=== PATIENT | male | born 1940 | race Caucasian/White ===

== ENCOUNTER 2017-08-29 09:05 | Observation (INO) ==
[2017-08-29] MEDS ORDERED: methylPREDNISolone 125 MG/2 ML VIAL IVP ONE (09:24)
[2017-08-29] MEDS ORDERED: 0.9 % Sodium Chloride 1,000 ML IVC ONE (09:24)
[2017-08-29] MEDS ORDERED: Ipratropium/Albuterol Neb 3 ML IH ONE (09:24)
[2017-08-29] MEDS ORDERED: Ibuprofen 600 MG TABLET PO ONE (09:30)
--- NOTE | 2017-08-29 09:45 | Emergency Department Note ---
Disposition Clinical Impression: Bronchitis, COPD exacerbation Sepsis Qualifiers: Sepsis type: sepsis due to unspecified organism Qualified Code(s): A41.9 - Sepsis, unspecified organism Disposition: Admitted As Inpatient Condition: Fair Referrals: Moi,Christiano Castillo MD [Primary Care Provider] - Forms: ED Satisfaction Letter Time of Disposition: 12:26 SOB HPI - General Chief Complaint: ED Shortness of Breath/Dyspnea Stated Complaint: Weakness,KATINA Time Seen by Provider: 08/29/17 09:12 Source: patient, other Mode of arrival: ambulatory Limitations: no limitations Nursing Notes Reviewed: Yes Vital Signs Reviewed: Yes - History of Present Illness 76-year-old male presents to the emergency department complaining of shortness of breath weakness. This is been occurring for 2-3 days worsening. Says he does have productive cough there is no blood. Patient states he knows that that is wrong when he can only do one to 2 cigarettes a day rather than his normal one to 2 packs a day. He says he has no cardiac issues he has no lung issues said he has had a fever but has not been taking anything for it. He has not been nauseous or vomiting since having mild upper abdominal pain but all from the cough and worsens whenever he does cough. He also has left-sided chest pain that is worse when he coughs otherwise she does not have it. Said these pains are about 5 out of 10 dull aches and only occur when he coughs. Patient otherwise has no complaints including headaches, blurry vision, neck pain, back pain, nausea, vomiting, fevers, chills, chest pain, abdominal pain, changes in bowel movements, pain with urination, pain or tingling of the arms or legs. - Related Data Home Medications Medication Instructions Recorded Confirmed Aspirin 81 mg PO DAILY 05/22/16 05/27/16 LORazepam [Ativan] 0.5 mg PO TID 05/22/16 05/27/16 Lisinopril [Zestril] 20 mg PO BID 05/22/16 05/27/16 Simvastatin [Zocor] 20 mg PO HS 05/22/16 05/27/16 Amlodipine Besylate [Amlodipine 2.5 mg PO DAILY 08/29/17 08/29/17 Besylate] Allergies Allergy/AdvReac Type Severity Reaction Status Date / Time No Known Allergies Allergy Verified 08/29/17 11:16 Review of Systems: 10 point review of systems done and negative unless otherwise stated in the history of present illness. All systems ED: reviewed and negative except as stated. Review of Systems: As Per HPI Past Medical History - Past Medical History Attestation: Yes The following information was validated with the patient. Source: patient Medical history: Reports: cancer, COPD, CVA, hypertension, other Surgical history: Reports: other (Robot bilateral inguinal hernia repair,) Psychiatric history: Reports: no psych history - Social History Smoking Status: Current every day smoker Smokeless Tobacco Status: No Alcohol use: Reports: heavy Drug use: Reports: none Physical Exam - General Limitations: no limitations General appearance: alert - Head Head exam: atraumatic, normocephalic, normal inspection - Eye Eye exam: Present: normal appearance, PERRL, EOMI - ENT ENT exam: normal exam, normal oropharynx, mucous membranes moist - Neck Neck exam: Present: normal inspection, full ROM, trachea midline - Respiratory Respiratory exam: Present: wheezes (And mild crackles in the right base.), accessory muscle use. Absent: respiratory distress, prolonged expiratory phase - Cardiovascular Cardiovascular exam: Present: regular rate, normal rhythm, normal heart sounds - Abdominal Exam Abdominal exam: Present: soft, Non-Tender, normal bowel sounds. Absent: tenderness, distention, guarding, rebound, rigidity - Extremities Exam Extremities exam: Present: normal inspection, full ROM. Absent: tenderness, pedal edema - Expanded Lower Extremity Exam Neurovascular/Tendon exam: Present: normal capillary refill. Absent: pulse deficit, motor deficit, sensory deficit, tendon deficit - Back Exam Back exam: Present: normal inspection, full ROM. Absent: tenderness, CVA tenderness (R), CVA tenderness (L) - Neurological Exam Neurological exam: Present: alert, oriented X3 - Skin Skin exam: Present: warm, dry, intact, normal color Course Course Narrative: 76-year-old male presents to the emergency department with weakness and fever as well as difficulty in breathing. We will give him triple DuoNeb treatment as well as steroids. We will get checked x-ray as well as EKG. Patient does not Sirs criteria so we will get blood cultures as well as CBC, CMP, troponin, lactate. We will give patient Motrin for his fever. We will also urinalysis. Patient was tachycardic here so we will do CT angiogram of the chest to rule out pontine embolism or possible small foci pneumonia. Disposition pending results Vital Signs Temperature 100.7 F H 08/29/17 09:06 Pulse Rate 127 08/29/17 09:06 Respiratory Rate 28 08/29/17 09:06 Blood Pressure 153/78 08/29/17 09:06 O2 Sat by Pulse Oximetry 91 08/29/17 09:06 Temperature 100.7 F H 08/29/17 09:06 Pulse Rate 101 08/29/17 11:28 Respiratory Rate 28 08/29/17 11:28 Blood Pressure 88/52 08/29/17 11:28 O2 Sat by Pulse Oximetry 98 08/29/17 11:28 Oxygen Delivery Oxygen Delivery Nasal Cannula Shortness of Breath/Dyspnea - MDM Narrative Medical decision making narrative: 76-year-old male presents to the emergency department complaining of difficulty in breathing or generalized weakness. Patient's labs showed hyponatremia which is chronic for him he had mildly elevated creatinine but was within still normal limits. Patient did have fever did treat him with Motrin. We also gave DuoNeb's and steroids. Patient does have COPD. Patient had CT angiogram done of his chest rule out pulmonary embolus and there is no PE there was possible bronchitis the right middle lobe due to patient's history of COPD hypoxia at 92 % as well as the bronchitis we felt patient needed to be admitted for IV and about. We did start Levaquin. I spoke with the hospitalist Dr. Canales who agreed to admit the patient to their service. Patient is admitted in stable condition. Patient did meet SIRS criteria when she fell bronchitis he was currently septic that time. We did not want to fluid overload him as patient says he does have history of CHF. So we just gave him 1 L bolus of IV fluids. I also treated his temperature. Patient was not hypotensive while he was here 3 did not meet criteria for septic shock. Chest X-Ray 08/29/17 09:24 IMPRESSION: 1. Findings suggestive of COPD. 2. Blunting of the bilateral costophrenic angles may represent scarring versus small pleural effusions. D/ / 08/29/2017 10:39:55 Tk Charles MD / katalina Interpreting Provider: Tk Charles MD Chest CTA 08/29/17 09:50 IMPRESSION: No evidence of pulmonary embolism or acute pulmonary abnormality. Mild right middle lobe bronchiolitis. Right upper lobe semi-solid 1.1 cm nodule. Severe atherosclerosis with bilateral subclavian stenosis and irregular plaque throughout the aorta. RECOMMENDATIONS: Follow-up chest CT in 3 months to evaluate the lung nodule. D/ / 08/29/2017 11:50:45 Long Mitchell MD / Michelle Salomon Interpreting Provider: Long Mitchell MD - Medical Records Medical records reviewed: Yes I reviewed the patient's medical records. - Lab Data Lab results reviewed: Yes I reviewed the patient's lab results. Result diagrams: 08/29/17 09:37 08/29/17 09:37 Lab Results 08/29/17 08/29/17 08/29/17 Range/Units 09:35 09:37 09:37 WBC 6.3 (4.3-11.1) K/mcL RBC 4.29 (4.19-5.50) M/mcL Hgb 14.3 (12.9-16.9) g/dL Hct 41.9 (37.5-50.1) % MCV 97.7 (83.0-100.0) fL MCH 33.3 (28.0-33.3) pg MCHC 34.1 (31.6-35.5) g/dL RDW 13.7 (11.5-14.5) % Plt Count 131 L (140-400) K/mcL MPV 10.1 (9.4-12.4) fL Immature Gran % 0.5 (0-4) % Seg Neutrophils % 83.3 % Lymphocytes % 7.3 % Monocytes % 8.4 % Eosinophils % 0.0 % Basophils % 0.5 % Neutrophils # 5.3 (1.6-8.9) K/mcL Lymphocytes # 0.5 L (0.6-4.6) K/mcL Monocytes # 0.5 (0.0-1.3) K/mcL Eosinophils # 0.0 (0.0-0.6) K/mcL Basophils # 0.0 (0.0-0.2) K/mcL PT 11.6 (9.4-12.1) Seconds INR 1.1 D-Dimer 2070 H (0-500) ng/mLFEU Sodium (136-145) mEq/L Potassium (3.5-5.1) mEq/L Chloride (98-107) mEq/L Carbon Dioxide (23-29) mEq/L BUN (8-23) mg/dL Creatinine (0.70-1.30) mg/dL Est GFR ( Amer) (> 60) Est GFR (Non-Af Amer) (> 60) BUN/Creatinine Ratio (6-26) Glucose (70-105) mg/dL Calculated Osmolality (280-300) Lactic Acid (0.5-2.2) mmol/L Calcium (8.6-10.3) mg/dL Total Bilirubin (0.3-1.0) mg/dL Direct Bilirubin (0.0-0.2) mg/dL Indirect Bilirubin (0.0-1.2) mg/dL AST (13-39) Units/L ALT (7-52) Units/L Alkaline Phosphatase (34-104) Units/L Troponin I (< 0.04) ng/mL B-Natriuretic Peptide (Less than 100) pg/mL Serum Total Protein (6.4-8.9) g/dL Albumin (3.5-5.7) g/dL Globulin (2.4-3.5) g/dL Albumin/Globulin Ratio (1.1-2.2) Urine Color Yellow (Yellow) Urine Clarity Cloudy A (Clear) Urine pH 5.5 (5.0-8.0) pH Units Ur Specific [place] 1.028 H (1.010-1.025) Urine Protein 100 H (Neg-Trace) mg/dL Urine Glucose (UA) Normal (Normal) mg/dL Urine Ketones Negative (Negative) mg/dL Urine Blood Moderate H (Negative) Urine Nitrite Negative (Negative) Urine Bilirubin Negative (Negative) Urine Urobilinogen Normal (Normal) mg/dL Ur Leukocyte Esterase Negative (Negative) Urine Microscopic RBC 3-5 H (0-3) per hpf Urine Microscopic WBC 3-5 H (0-3) per hpf Ur Squamous Epith Cells Few (None-Few) per lpf Urine Bacteria Many H (None-Few) per hpf Hyaline Casts None Seen (None-Few) per lpf Granular Casts Few H (None Seen) per lpf Ur Culture Indicated? NO (NO) 0308/29/17 08/29/17 Range/Units 09:37 09:37 09:37 WBC (4.3-11.1) K/mcL RBC (4.19-5.50) M/mcL Hgb (12.9-16.9) g/dL Hct (37.5-50.1) % MCV (83.0-100.0) fL MCH (28.0-33.3) pg MCHC (31.6-35.5) g/dL RDW (11.5-14.5) % Plt Count (140-400) K/mcL MPV (9.4-12.4) fL Immature Gran % (0-4) % Seg Neutrophils % % Lymphocytes % % Monocytes % % Eosinophils % % Basophils % % Neutrophils # (1.6-8.9) K/mcL Lymphocytes # (0.6-4.6) K/mcL Monocytes # (0.0-1.3) K/mcL Eosinophils # (0.0-0.6) K/mcL Basophils # (0.0-0.2) K/mcL PT (9.4-12.1) Seconds INR D-Dimer (0-500) ng/mLFEU Sodium 129 L (136-145) mEq/L Potassium 4.4 (3.5-5.1) mEq/L Chloride 93 L (98-107) mEq/L Carbon Dioxide 26 (23-29) mEq/L BUN 24 H (8-23) mg/dL Creatinine 1.34 H (0.70-1.30) mg/dL Est GFR ( Amer) > 60 (> 60) Est GFR (Non-Af Amer) 52 L (> 60) BUN/Creatinine Ratio 18 (6-26) Glucose 126 H (70-105) mg/dL Calculated Osmolality 274 L (280-300) Lactic Acid 2.0 (0.5-2.2) mmol/L Calcium 9.4 (8.6-10.3) mg/dL Total Bilirubin 1.1 H (0.3-1.0) mg/dL Direct Bilirubin 0.3 H (0.0-0.2) mg/dL Indirect Bilirubin 0.8 (0.0-1.2) mg/dL AST 30 (13-39) Units/L ALT 22 (7-52) Units/L Alkaline Phosphatase 98 (34-104) Units/L Troponin I 0.03 (< 0.04) ng/mL B-Natriuretic Peptide 60 (Less than 100) pg/mL Serum Total Protein 8.0 (6.4-8.9) g/dL Albumin 4.6 (3.5-5.7) g/dL Globulin 3.4 (2.4-3.5) g/dL Albumin/Globulin Ratio 1.4 (1.1-2.2) Urine Color (Yellow) Urine Clarity (Clear) Urine pH (5.0-8.0) pH Units Ur Specific [place] (1.010-1.025) Urine Protein (Neg-Trace) mg/dL Urine Glucose (UA) (Normal) mg/dL Urine Ketones (Negative) mg/dL Urine Blood (Negative) Urine Nitrite (Negative) Urine Bilirubin (Negative) Urine Urobilinogen (Normal) mg/dL Ur Leukocyte Esterase (Negative) Urine Microscopic RBC (0-3) per hpf Urine Microscopic WBC (0-3) per hpf Ur Squamous Epith Cells (None-Few) per lpf Urine Bacteria (None-Few) per hpf Hyaline Casts (None-Few) per lpf Granular Casts (None Seen) per lpf Ur Culture Indicated? (NO) - Radiology Data Radiology results reviewed: Yes I reviewed the patient's radiology results. - EKG Data EKG attestation: Yes I reviewed and interpreted this EKG. EKG results narrative: EKG done at 0925 reviewed on myself and attending shows sinus tachycardia at a rate of 122, NH interval 124, QRS 81, QTC 367 with a normal axis. There is no acute ST changes no acute T-wave changes no signs of ischemia. No signs of hypertrophy, heart strain, heart block. No WPW/Brugada syndrome. No old EKG to compare with Sepsis Reassessment Note - Evaluation Sepsis Screen: Severe Sepsis Risk Current Stage of Sepsis: sepsis Possible Source of Sepsis: pulmonary - Focused Exam Date of Encounter: 08/29/17 Time of Encounter: 12:29 Vital Signs: Vital Signs Temp Pulse Resp BP Pulse Ox 08/29/17 12:11 93 26 77/49 97 08/29/17 11:28 101 28 88/52 98 08/29/17 10:14 20 100 08/29/17 10:06 107 34 123/73 99 08/29/17 09:41 127 34 132/97 96 08/29/17 09:06 100.7 F H 127 28 153/78 91 Respiratory Exam: Present: wheezes Cardiovascular Exam: Present: RRR Capillary Refill: < 2 seconds Peripheral Pulse Strength: 3+ normal Peripheral Pulse Location: Radial Skin Exam: normal turgor
[2017-08-29 09:59] LABS: Basophils % 0.5 %; Hematocrit 41.9 % (37.5-50.1); Hemoglobin 14.3 g/dL (12.9-16.9); Immature Granulocytes % 0.5 % (0-4); Lymphocytes # 0.5 K/mcL (0.6-4.6); Lymphocytes % 7.3 %; Mean Corpuscular HGB Conc 34.1 g/dL (31.6-35.5); Mean Corpuscular Hemoglobin 33.3 pg (28.0-33.3); Mean Corpuscular Volume 97.7 fL (83.0-100.0); Mean Platelet Volume 10.1 fL (9.4-12.4); Monocytes # 0.5 K/mcL (0.0-1.3); Monocytes % 8.4 %; Neutrophils # 5.3 K/mcL (1.6-8.9); Platelet Count 131 K/mcL (140-400); Red Blood Count 4.29 M/mcL (4.19-5.50); Red Cell Distribution Width 13.7 % (11.5-14.5); Segmented Neutrophils % 83.3 %
[2017-08-29 10:06] LABS: Bilirubin,Urine Negative (Negative); Blood,Urine Moderate (Negative); Clarity,Urine Cloudy (Clear); Color,Urine Yellow (Yellow); Glucose,Urine (UA) Normal (Normal); Ketones,Urine Negative (Negative); Leukocyte Esterase,Urine Negative (Negative); Nitrite,Urine Negative (Negative); PH,Urine 5.5 pH Units (5.0-8.0); Protein,Urine 100 mg/dL (Neg-Trace); Specific Gravity,Urine 1.028 (1.010-1.025); Urobilinogen,Urine Normal (Normal)
[2017-08-29 10:09] LABS: Hyaline Casts,Urine None Seen per lpf (None-Few)
[2017-08-29 10:13] LABS: INR 1.1; Prothrombin Time 11.6 Seconds (9.4-12.1)
[2017-08-29 10:16] LABS: Alanine Aminotransferase 22 Units/L (7-52); Albumin 4.6 g/dL (3.5-5.7); Albumin/Globulin Ratio 1.4 (1.1-2.2); Alkaline Phosphatase 98 Units/L (34-104); Aspartate Amino Transferase 30 Units/L (13-39); BUN/Creatinine Ratio 18 (6-26); Bilirubin,Direct 0.3 mg/dL (0.0-0.2); Bilirubin,Indirect 0.8 mg/dL (0.0-1.2); Bilirubin,Total 1.1 mg/dL (0.3-1.0); Blood Urea Nitrogen 24 mg/dL (8-23); Calcium 9.4 mg/dL (8.6-10.3); Carbon Dioxide 26 mEq/L (23-29); Chloride 93 mEq/L (98-107); Globulin 3.4 g/dL (2.4-3.5); Glucose 126 mg/dL (70-105); Osmolality,Calculated 274 (280-300); Potassium 4.4 mEq/L (3.5-5.1); Sodium 129 mEq/L (136-145); Troponin I 0.03 ng/mL (< 0.04); eGFR For African Americans > 60 (> 60); eGFR For Non-African Americans 52 (> 60)
[2017-08-29 10:30] LABS: Granular Casts,Urine Few per lpf (None Seen); Squamous Epithelial Cell,Urine Few per lpf (None-Few)
[2017-08-29 10:31] LABS: Bacteria,Urine Many per hpf (None-Few)
--- NOTE | 2017-08-29 10:35 | Emergency Department Note ---
Disposition Clinical Impression: Sepsis Qualifiers: Sepsis type: sepsis due to unspecified organism Qualified Code(s): A41.9 - Sepsis, unspecified organism Disposition: Admitted As Inpatient Referrals: Christiano Prater MD [Primary Care Provider] - Forms: ED Satisfaction Letter Time of Disposition: 10:36 General Adult HPI - General Chief complaint: ED Shortness of Breath/Dyspnea Stated complaint: Weakness,KATINA Time Seen by Provider: 08/29/17 09:12 Source: patient, other Mode of arrival: ambulatory Limitations: no limitations - History of Present Illness Pain Scale: 8 - Related Data Home Medications Medication Instructions Recorded Confirmed Aspirin 81 mg PO DAILY 05/22/16 05/27/16 LORazepam [Ativan] 0.5 mg PO TID 05/22/16 05/27/16 Lisinopril [Zestril] 20 mg PO BID 05/22/16 05/27/16 Simvastatin [Zocor] 20 mg PO HS 05/22/16 05/27/16 Previous Rx's Medication Instructions Recorded OxyCODONE/APAP 10/325 [Percocet 1 each PO Q6HR PRN #39 tablet 05/22/16 10/325 MG] Ondansetron HCl [Zofran] 4 mg PO 2-3XD PRN #14 tablet 05/24/16 Allergies Allergy/AdvReac Type Severity Reaction Status Date / Time No Known Allergies Allergy Verified 08/29/17 09:06 Past Medical History - Past Medical History Medical history: Reports: cancer, COPD, CVA, hypertension, other Surgical history: Reports: other (Robot bilateral inguinal hernia repair,) Psychiatric history: Reports: no psych history - Social History Smoking Status: Current every day smoker Smokeless Tobacco Status: No Alcohol use: Reports: heavy Drug use: Reports: none Physical Exam - General Limitations: no limitations General appearance: alert Course Vital Signs Temperature 100.7 F H 08/29/17 09:06 Pulse Rate 127 08/29/17 09:06 Respiratory Rate 28 08/29/17 09:06 Blood Pressure 153/78 08/29/17 09:06 O2 Sat by Pulse Oximetry 91 08/29/17 09:06 Temperature 100.7 F H 08/29/17 09:06 Pulse Rate 107 08/29/17 10:06 Respiratory Rate 20 08/29/17 10:14 Blood Pressure 123/73 08/29/17 10:06 O2 Sat by Pulse Oximetry 100 08/29/17 10:14 Oxygen Delivery Oxygen Delivery Nasal Cannula Medical Decision Making - Lab Data Result diagrams: 08/29/17 09:37 08/29/17 09:37 Lab Results 08/29/17 08/29/17 08/29/17 Range/Units 09:35 09:37 09:37 WBC 6.3 (4.3-11.1) K/mcL RBC 4.29 (4.19-5.50) M/mcL Hgb 14.3 (12.9-16.9) g/dL Hct 41.9 (37.5-50.1) % MCV 97.7 (83.0-100.0) fL MCH 33.3 (28.0-33.3) pg MCHC 34.1 (31.6-35.5) g/dL RDW 13.7 (11.5-14.5) % Plt Count 131 L (140-400) K/mcL MPV 10.1 (9.4-12.4) fL Immature Gran % 0.5 (0-4) % Seg Neutrophils % 83.3 % Lymphocytes % 7.3 % Monocytes % 8.4 % Eosinophils % 0.0 % Basophils % 0.5 % Neutrophils # 5.3 (1.6-8.9) K/mcL Lymphocytes # 0.5 L (0.6-4.6) K/mcL Monocytes # 0.5 (0.0-1.3) K/mcL Eosinophils # 0.0 (0.0-0.6) K/mcL Basophils # 0.0 (0.0-0.2) K/mcL PT 11.6 (9.4-12.1) Seconds INR 1.1 D-Dimer 2070 H (0-500) ng/mLFEU Sodium (136-145) mEq/L Potassium (3.5-5.1) mEq/L Chloride (98-107) mEq/L Carbon Dioxide (23-29) mEq/L BUN (8-23) mg/dL Creatinine (0.70-1.30) mg/dL Est GFR ( Amer) (> 60) Est GFR (Non-Af Amer) (> 60) BUN/Creatinine Ratio (6-26) Glucose (70-105) mg/dL Calculated Osmolality (280-300) Lactic Acid (0.5-2.2) mmol/L Calcium (8.6-10.3) mg/dL Total Bilirubin (0.3-1.0) mg/dL Direct Bilirubin (0.0-0.2) mg/dL Indirect Bilirubin (0.0-1.2) mg/dL AST (13-39) Units/L ALT (7-52) Units/L Alkaline Phosphatase (34-104) Units/L Troponin I (< 0.04) ng/mL B-Natriuretic Peptide (Less than 100) pg/mL Serum Total Protein (6.4-8.9) g/dL Albumin (3.5-5.7) g/dL Globulin (2.4-3.5) g/dL Albumin/Globulin Ratio (1.1-2.2) Urine Color Yellow (Yellow) Urine Clarity Cloudy A (Clear) Urine pH 5.5 (5.0-8.0) pH Units Ur Specific [place] 1.028 H (1.010-1.025) Urine Protein 100 H (Neg-Trace) mg/dL Urine Glucose (UA) Normal (Normal) mg/dL Urine Ketones Negative (Negative) mg/dL Urine Blood Moderate H (Negative) Urine Nitrite Negative (Negative) Urine Bilirubin Negative (Negative) Urine Urobilinogen Normal (Normal) mg/dL Ur Leukocyte Esterase Negative (Negative) Urine Microscopic RBC 3-5 H (0-3) per hpf Urine Microscopic WBC 3-5 H (0-3) per hpf Ur Squamous Epith Cells Few (None-Few) per lpf Urine Bacteria Many H (None-Few) per hpf Hyaline Casts None Seen (None-Few) per lpf Granular Casts Few H (None Seen) per lpf Ur Culture Indicated? NO (NO) 08/29/17 08/29/17 08/29/17 Range/Units 09:37 09:37 09:37 WBC (4.3-11.1) K/mcL RBC (4.19-5.50) M/mcL Hgb (12.9-16.9) g/dL Hct (37.5-50.1) % MCV (83.0-100.0) fL MCH (28.0-33.3) pg MCHC (31.6-35.5) g/dL RDW (11.5-14.5) % Plt Count (140-400) K/mcL MPV (9.4-12.4) fL Immature Gran % (0-4) % Seg Neutrophils % % Lymphocytes % % Monocytes % % Eosinophils % % Basophils % % Neutrophils # (1.6-8.9) K/mcL Lymphocytes # (0.6-4.6) K/mcL Monocytes # (0.0-1.3) K/mcL Eosinophils # (0.0-0.6) K/mcL Basophils # (0.0-0.2) K/mcL PT (9.4-12.1) Seconds INR D-Dimer (0-500) ng/mLFEU Sodium 129 L (136-145) mEq/L Potassium 4.4 (3.5-5.1) mEq/L Chloride 93 L (98-107) mEq/L Carbon Dioxide 26 (23-29) mEq/L BUN 24 H (8-23) mg/dL Creatinine 1.34 H (0.70-1.30) mg/dL Est GFR ( Amer) > 60 (> 60) Est GFR (Non-Af Amer) 52 L (> 60) BUN/Creatinine Ratio 18 (6-26) Glucose 126 H (70-105) mg/dL Calculated Osmolality 274 L (280-300) Lactic Acid 2.0 (0.5-2.2) mmol/L Calcium 9.4 (8.6-10.3) mg/dL Total Bilirubin 1.1 H (0.3-1.0) mg/dL Direct Bilirubin 0.3 H (0.0-0.2) mg/dL Indirect Bilirubin 0.8 (0.0-1.2) mg/dL AST 30 (13-39) Units/L ALT 22 (7-52) Units/L Alkaline Phosphatase 98 (34-104) Units/L Troponin I 0.03 (< 0.04) ng/mL B-Natriuretic Peptide 60 (Less than 100) pg/mL Serum Total Protein 8.0 (6.4-8.9) g/dL Albumin 4.6 (3.5-5.7) g/dL Globulin 3.4 (2.4-3.5) g/dL Albumin/Globulin Ratio 1.4 (1.1-2.2) Urine Color (Yellow) Urine Clarity (Clear) Urine pH (5.0-8.0) pH Units Ur Specific [place] (1.010-1.025) Urine Protein (Neg-Trace) mg/dL Urine Glucose (UA) (Normal) mg/dL Urine Ketones (Negative) mg/dL Urine Blood (Negative) Urine Nitrite (Negative) Urine Bilirubin (Negative) Urine Urobilinogen (Normal) mg/dL Ur Leukocyte Esterase (Negative) Urine Microscopic RBC (0-3) per hpf Urine Microscopic WBC (0-3) per hpf Ur Squamous Epith Cells (None-Few) per lpf Urine Bacteria (None-Few) per hpf Hyaline Casts (None-Few) per lpf Granular Casts (None Seen) per lpf Ur Culture Indicated? (NO) Attestation Statement - Attestation Attestation: I examined this patient and my medical decision-making was reviewed with the Resident Physician. I agree with the documented findings, disposition and treatment plan as described except to the extent set forth below. 76 year old male who is 3LNC oxygen dependent seocndary to his COPD presents with productive cough and presents with tachycardiac and fever. SIRS (+), and likley pnuemonia. WE will treat him with dounebs/steroids and treat with IV ABX with CTA to deepali out PE vs pnuemoina due to cxr not confirming pnuemoina. We will also add a influenza swab for completion. Gisella will be adimtted to medicine
[2017-08-29] MEDS ORDERED: Levofloxacin 750 MG/150 ML 750 MG/150 ML BAG IVPB ONE (10:37)
--- NOTE | 2017-08-29 11:32 | Electrocardiograph Report ---
[facility] Test Date: 2017-08-29 Pat Name: Robert Branch Department: 104 Room: Gender: Body Corporate Manager: : 1940 Requested By: Inocente Segal Order Number: [id number] Reading MD: Adelso Abad MD Measurements Intervals [place] Rate: 122 P: 74 VT: 124 QRS: 97 QRSD: 81 T: 68 QT: 294 QTc: 367 Interpretive Statements SINUS TACHYCARDIA BORDERLINE RIGHT AXIS DEVIATION [QRS AXIS > 90] ABNORMAL RHYTHM ECG Electronically Signed On 08-29-2017 11:30:43 EDT by Adelso Abad MD
--- NOTE | 2017-08-29 15:24 | Internal Med History&Physical ---
Date of Encounter: 08/29/17 Time of Encounter: 14:00 Assessment and Plan (1) COPD exacerbation Current visit: Yes Status: Acute -Patient with acute hypoxic respiratory failure secondary to COPD exacerbation. -Suspect secondary to bacterial infection so we will initiate IV Levaquin in addition to IV Solu-Medrol and supplement oxygen as needed -Will continue duo nebs (2) Acute renal failure (ARF) Current visit: Yes Status: Acute -Suspect prerenal secondary to dehydration due to decreased by mouth intake -Patient with creatinine which is above baseline at 1.38 -Will initiate gentle IV fluids and monitor Qualifiers: Acute renal failure type: unspecified Qualified Code(s): N17.9 - Acute kidney failure, unspecified (3) Hyponatremia Current visit: No Status: Acute -Patient with sodium of 129. -Will continue normal saline as above for acute renal failure and monitor sodium levels (4) HTN (hypertension), benign Current visit: Yes Status: Acute Blood pressure stable continue home medication (5) HLD (hyperlipidemia) Current visit: Yes Status: Acute Continue statin Qualifiers: Hyperlipidemia type: unspecified Qualified Code(s): E78.5 - Hyperlipidemia , unspecified (6) DVT prophylaxis Current visit: Yes Status: Acute Subcutaneous heparin Internal Medicine - H&P: HPI Chief complaint: Shortness of breath/productive cough Admitted From: Home Plans for Post Hospital Care: Home History of present illness: Patient is a 76 year old male with past medical history significant for HTN, HLD and SOLIS who presents to the ER on 08/29/17 due to shortness of breath. Patient is a poor historian and daughter who is at bedside does not live with patient but she states that her brother who does live with the patient but not present reports patient had not been feeling well for the last couple days. Patient does wake up long enough to report being short of breath and to report productive cough which was yellowish. He also reports a feeling warm and has had decreased by mouth intake. In the ER, patient was found to have a temp of 100.7 with no infiltrates on chest x-ray and without leukocytosis. An incidental finding of right upper lobe nodule measuring 1.1 cm was found on the CTA of chest. Patient will be admitted to the medical surgical floor for COPD exacerbation. Past Med Surg Social Fam HX - Past Medical History Medical history: cancer, COPD, CVA, hypertension, other Psychiatric history: no psych history - Past Surgical History Surgical History: other (Robot bilateral inguinal hernia repair,) - Social History Smoking Status: Current every day smoker Smokeless Tobacco Status: No Alcohol use: heavy Drug use: none - Additional Family History Additional family history: Family history reviewed and noncontributory Internal Medicine - H&P: Meds Aspirin 81 mg PO DAILY 05/22/16 [History] LORazepam [Ativan] 0.5 mg PO TID 05/22/16 [History] Lisinopril [Zestril] 20 mg PO BID 05/22/16 [History] Simvastatin [Zocor] 20 mg PO HS 05/22/16 [History] Amlodipine Besylate [Amlodipine Besylate] 2.5 mg PO DAILY 08/29/17 [History] 3 Allergy/AdvReac Type Severity Reaction Status Date / Time No Known Allergies Allergy Verified 08/29/17 11:16 All Systems PM: A 10-system review of systems was performed and is negative for pertinent findings except as documented above in the HPI. - Constitutional Vitals: Temp Pulse Resp BP Pulse Ox 97.6 F 91 24 100/67 96 08/29/17 14:50 08/29/17 14:50 08/29/17 14:50 08/29/17 14:50 08/29/17 14:50 General appearance: Present: A&O X 3. Absent: no acute distress - Head Head exam: Present: normocephalic - Eye Eye exam: Present: normal appearance - ENT ENT exam: Present: mucous membranes moist - Respiratory Respiratory exam: Present: CTAB. Absent: accessory muscle use, rales, rhonchi, wheezes - Cardiovascular Cardiovascular exam: Present: RRR, +S1, +S2. Absent: diastolic murmur, gallop, rubs, systolic murmur - GI/Abdominal GI/Abdominal exam: Present: normal bowel sounds, soft, no peritoneal signs. Absent: distended, tenderness - Extremities Exam Extremities exam: Absent: pedal edema - Neurological Exam Neurological exam: Present: oriented X3. Absent: no focal deficits - Psychiatric Psychiatric exam: Present: normal mood - Skin Skin exam: Present: normal color Internal Med - H&P Results - Labs CBC & Chem 7: 08/29/17 09:37 08/29/17 09:37
[2017-08-29] MEDS ORDERED: Naloxone 0.4 MG/ML INJ IVP PRN (15:40)
[2017-08-29] MEDS: 0.9 % Sodium Chloride 1,000 ML IVC SCH (16:43)
[2017-08-29] MEDS: methylPREDNISolone 125 MG/2 ML VIAL IVP SCH ×2 (16:44→23:17)
[2017-08-29 17:48] LABS: Influenza A PCR Negative (Negative); Influenza B PCR Positive (Negative); Resp. Syncytial Virus PCR Negative (Negative)
[2017-08-29] MEDS: Ipratropium/Albuterol Neb 3 ML IH SCH ×3 (18:38→23:23)
[2017-08-29] MEDS: Lisinopril 20 MG TABLET PO SCH (21:08)
[2017-08-29] MEDS: *HR* LORazepam 0.5 MG TABLET PO SCH (21:09)
[2017-08-29] MEDS: Oseltamivir Phosphate 30 MG CAPSULE PO SCH (21:09)
[2017-08-30] MEDS: Ipratropium/Albuterol Neb 3 ML IH SCH ×4 (03:28→21:48)
[2017-08-30 03:34] LABS: Basophils % 0.1 %; Hematocrit 34.9 % (37.5-50.1); Immature Granulocytes % 1.1 % (0-4); Lymphocytes # 0.4 K/mcL (0.6-4.6); Lymphocytes % 5.7 %; Mean Corpuscular HGB Conc 33.2 g/dL (31.6-35.5); Mean Corpuscular Hemoglobin 32.3 pg (28.0-33.3); Mean Corpuscular Volume 97.2 fL (83.0-100.0); Mean Platelet Volume 10.1 fL (9.4-12.4); Monocytes # 0.3 K/mcL (0.0-1.3); Monocytes % 3.9 %; Neutrophils # 6.4 K/mcL (1.6-8.9); Platelet Count 106 K/mcL (140-400); Red Blood Count 3.59 M/mcL (4.19-5.50); Red Cell Distribution Width 13.7 % (11.5-14.5); Segmented Neutrophils % 89.2 %
[2017-08-30 03:35] LABS: Hemoglobin 11.6 g/dL (12.9-16.9)
[2017-08-30 03:44] LABS: BUN/Creatinine Ratio 23 (6-26); Blood Urea Nitrogen 23 mg/dL (8-23); Calcium 8.7 mg/dL (8.6-10.3); Carbon Dioxide 24 mEq/L (23-29); Chloride 101 mEq/L (98-107); Glucose 190 mg/dL (70-105); Osmolality,Calculated 281 (280-300); Potassium 3.8 mEq/L (3.5-5.1); Sodium 131 mEq/L (136-145); eGFR For African Americans > 60 (> 60); eGFR For Non-African Americans > 60 (> 60)
[2017-08-30] MEDS: 0.9 % Sodium Chloride 1,000 ML IVC SCH (05:10)
[2017-08-30] MEDS: Oseltamivir Phosphate 30 MG CAPSULE PO SCH ×2 (08:40→21:38)
[2017-08-30] MEDS: methylPREDNISolone 125 MG/2 ML VIAL IVP SCH ×3 (08:40→23:58)
[2017-08-30] MEDS: Lisinopril 20 MG TABLET PO SCH ×2 (08:40→21:39)
[2017-08-30] MEDS: *HR* LORazepam 0.5 MG TABLET PO SCH ×3 (08:40→21:39)
[2017-08-30] MEDS ORDERED: Aspirin 81 MG TAB.CHEW PO SCH (09:00)
[2017-08-30] MEDS ORDERED: amLODIPine 5 MG TABLET PO SCH (09:00)
[2017-08-30] MEDS ORDERED: Ipratropium/Albuterol Neb 3 ML IH SCH (12:00)
[2017-08-30] MEDS ORDERED: 0.9 % Sodium Chloride 1,000 ML IVC SCH (13:33)
[2017-08-30] MEDS ORDERED: Naloxone 0.4 MG/ML INJ IVP PRN (13:33)
--- NOTE | 2017-08-30 19:17 | Internal Med Progress Note ---
Date of Encounter: 08/30/17 Time of Encounter: 10:37 - Assessment and plan (1) COPD exacerbation Current Visit: Yes Status: Acute Assessment and plan: Patient subjectively improved. Continue IV steroids, nebulizer treatments, and supplemental O2. Continue IV levaquin as per below. Stable enough for transfer to general medical floor with telemetry. (2) Pneumonia Current Visit: Yes Status: Suspected Assessment and plan: Continue IV levaquin. Qualifiers: Pneumonia type: due to unspecified organism Laterality: right Lung location: middle lobe of lung Qualified Code(s): J18.1 - Lobar pneumonia, unspecified organism (3) Acute kidney injury Current Visit: Yes Status: Resolved Assessment and plan: Likely secondary to dehydration. Resolved this AM. Cr = 1.01. Will discontinue IVF. (4) HLD (hyperlipidemia) Current Visit: Yes Status: Chronic Assessment and plan: Continue home medications. Qualifiers: Hyperlipidemia type: unspecified Qualified Code(s): E78.5 - Hyperlipidemia , unspecified (5) HTN (hypertension), benign Current Visit: Yes Status: Chronic Assessment and plan: Continue home medications. (6) Hyponatremia Current Visit: Yes Status: Acute Assessment and plan: Improved. Na = 131. Stopped IVF as per above. Check BMP in AM. (7) DVT prophylaxis Current Visit: Yes Status: Acute Assessment and plan: Continue renally dosed lovenox. - Time Spent With Patient less than 15 minutes - Subjective Interval history: Patient had no acute events overnight. He states that he feels "better" this AM. He denies any chest pain, SOB, fever, or chills. He has no new complaints. - Constitutional Vitals: Temp Pulse Resp BP Pulse Ox 97.8 F 103 22 144/81 98 08/30/17 16:47 08/30/17 16:47 08/30/17 16:47 08/30/17 16:47 08/30/17 16:47 General appearance: Present: cooperative, A&O X 3, pleasant, no acute distress, answers questions appropriately - Respiratory Respiratory exam: Absent: accessory muscle use, rales, rhonchi Additional comments: Mildly labored WOB, bilaterally intermittent expiratory wheezing - Cardiovascular Cardiovascular exam: Present: RRR, +S1, +S2. Absent: diastolic murmur, gallop, rubs, systolic murmur Additional comments: No BLE edema - GI/Abdominal GI/Abdominal exam: Present: normal bowel sounds, soft. Absent: distended, hepatomegaly, mass, splenomegaly, tenderness - Psychiatric Psychiatric exam: Present: normal affect, normal mood. Absent: anxious, depressed - Skin Skin exam: Present: dry, intact, warm. Absent: cyanosis, rash Internal Medicine: Result - Labs CBC & Chem 7: 08/30/17 03:09 08/30/17 03:09 Labs: Short CBC 08/30/17 Range/Units 03:09 WBC 7.2 (4.3-11.1) K/mcL Hgb 11.6 L D (12.9-16.9) g/dL Hct 34.9 L (37.5-50.1) % Plt Count 106 L (140-400) K/mcL Neutrophils # 6.4 (1.6-8.9) K/mcL BMP 08/30/17 03:09 Sodium 131 L Potassium 3.8 Chloride 101 Carbon Dioxide 24 BUN 23 Creatinine 1.01 Glucose 190 H Calcium 8.7 - ABG Interpretation ABG results: PT/INR, D-dimer PT 11.6 Seconds (9.4-12.1) 08/29/17 09:37 D-Dimer 2070 ng/mLFEU (0-500) H 08/29/17 09:37 Consult Discharge Plan - Plan Referrals: Christiano Prater MD [Primary Care Provider] -
[2017-08-31] MEDS: Ipratropium/Albuterol Neb 3 ML IH SCH ×4 (03:50→21:59)
[2017-08-31] MEDS: *HR* Enoxaparin 30 MG/0.3 ML SYRINGE SQ SCH (05:50)
[2017-08-31] MEDS ORDERED: *HR* Enoxaparin 30 MG/0.3 ML SYRINGE SQ SCH (06:00)
[2017-08-31] MEDS: Oseltamivir Phosphate 30 MG CAPSULE PO SCH ×2 (08:44→20:16)
[2017-08-31] MEDS: Aspirin 81 MG TAB.CHEW PO SCH (08:45)
[2017-08-31] MEDS: Lisinopril 20 MG TABLET PO SCH ×2 (08:45→20:15)
[2017-08-31] MEDS: amLODIPine 5 MG TABLET PO SCH (08:45)
[2017-08-31] MEDS: *HR* LORazepam 0.5 MG TABLET PO SCH ×3 (08:45→20:15)
[2017-08-31] MEDS: methylPREDNISolone 125 MG/2 ML VIAL IVP SCH ×2 (08:47→16:15)
[2017-08-31] MEDS ORDERED: Levofloxacin 750 MG/150 ML 750 MG/150 ML BAG IVPB SCH ×2 (11:00)
[2017-08-31 11:45] LABS: Hematocrit 36.9 % (37.5-50.1); Hemoglobin 12.4 g/dL (12.9-16.9); Mean Corpuscular HGB Conc 33.6 g/dL (31.6-35.5); Mean Corpuscular Hemoglobin 32.5 pg (28.0-33.3); Mean Corpuscular Volume 96.6 fL (83.0-100.0); Mean Platelet Volume 10.6 fL (9.4-12.4); Platelet Count 116 K/mcL (140-400); Red Blood Count 3.82 M/mcL (4.19-5.50); Red Cell Distribution Width 13.8 % (11.5-14.5)
[2017-08-31 12:04] LABS: BUN/Creatinine Ratio 26 (6-26); Blood Urea Nitrogen 23 mg/dL (8-23); Carbon Dioxide 27 mEq/L (23-29); Chloride 101 mEq/L (98-107); Glucose 128 mg/dL (70-105); Osmolality,Calculated 285 (280-300); Potassium 3.6 mEq/L (3.5-5.1); Sodium 135 mEq/L (136-145); eGFR For African Americans > 60 (> 60); eGFR For Non-African Americans > 60 (> 60)
[2017-08-31 12:31] LABS: Lymphocytes # 0.8 K/mcL (0.6-4.6); Monocytes # 0.2 K/mcL (0.0-1.3); Neutrophils # 8.5 K/mcL (1.6-8.9)
[2017-08-31 12:32] LABS: Reactive Lymphocytes Present (Not Present)
[2017-08-31 12:33] LABS: Platelet Estimate Decreased (Normal)
--- NOTE | 2017-08-31 17:44 | Internal Med Progress Note ---
Date of Encounter: 08/31/17 Time of Encounter: 17:42 - Assessment and plan (1) COPD exacerbation Current Visit: Yes Status: Acute Assessment and plan: Patient subjectively improved. Continues to have significant wheezing. Continue IV steroids, nebulizer treatments, and supplemental O2. Continue IV levaquin as per below. (2) Pneumonia Current Visit: Yes Status: Suspected Assessment and plan: Continue IV levaquin. Qualifiers: Pneumonia type: due to unspecified organism Laterality: right Lung location: middle lobe of lung Qualified Code(s): J18.1 - Lobar pneumonia, unspecified organism (3) Acute kidney injury Current Visit: Yes Status: Resolved Assessment and plan: Likely secondary to dehydration. Resolved. Cr = 0.89 today. (4) HLD (hyperlipidemia) Current Visit: Yes Status: Chronic Assessment and plan: Continue home medications. Qualifiers: Hyperlipidemia type: unspecified Qualified Code(s): E78.5 - Hyperlipidemia , unspecified (5) HTN (hypertension), benign Current Visit: Yes Status: Chronic Assessment and plan: Continue home medications. (6) Hyponatremia Current Visit: Yes Status: Resolved Assessment and plan: Resolved. Na = 135. (7) DVT prophylaxis Current Visit: Yes Status: Acute Assessment and plan: Continue renally dosed lovenox. - Time Spent With Patient less than 15 minutes - Subjective Interval history: Patient had no acute events overnight. He states that he feels "better" this AM. He denies any chest pain, SOB, fever, or chills. He wants to go home. He continues to have significant wheezing. He has no new complaints. - Constitutional Vitals: Temp Pulse Resp BP Pulse Ox 97.9 F 99 16 149/83 99 08/31/17 15:23 08/31/17 15:23 08/31/17 15:27 08/31/17 15:23 08/31/17 15:27 General appearance: Present: cooperative, A&O X 3, pleasant, no acute distress, answers questions appropriately - Respiratory Respiratory exam: Absent: accessory muscle use, rales, rhonchi Additional comments: Mildly labored WOB, bilaterally intermittent expiratory wheezing - Cardiovascular Cardiovascular exam: Present: RRR, +S1, +S2. Absent: diastolic murmur, gallop, rubs, systolic murmur Additional comments: No BLE edema - GI/Abdominal GI/Abdominal exam: Present: normal bowel sounds, soft. Absent: distended, hepatomegaly, mass, splenomegaly, tenderness - Psychiatric Psychiatric exam: Present: normal affect, normal mood. Absent: anxious, depressed - Skin Skin exam: Present: dry, intact, warm. Absent: cyanosis, rash Internal Medicine: Result - Labs CBC & Chem 7: 08/31/17 11:26 08/31/17 11:26 Labs: Short CBC 08/31/17 Range/Units 11:26 WBC 9.4 (4.3-11.1) K/mcL Hgb 12.4 L (12.9-16.9) g/dL Hct 36.9 L (37.5-50.1) % Plt Count 116 L (140-400) K/mcL Neutrophils # 8.5 (1.6-8.9) K/mcL BMP 08/31/17 11:26 Sodium 135 L Potassium 3.6 Chloride 101 Carbon Dioxide 27 BUN 23 Creatinine 0.89 Glucose 128 H Calcium 9.0 - ABG Interpretation ABG results: PT/INR, D-dimer PT 11.6 Seconds (9.4-12.1) 08/29/17 09:37 D-Dimer 2070 ng/mLFEU (0-500) H 08/29/17 09:37 Consult Discharge Plan - Plan Referrals: Christiano Prater MD [Primary Care Provider] -
[2017-09-01] MEDS: methylPREDNISolone 125 MG/2 ML VIAL IVP SCH ×2 (00:14→08:33)
[2017-09-01] MEDS: Ipratropium/Albuterol Neb 3 ML IH SCH ×2 (03:56→10:28)
[2017-09-01 05:28] LABS: Basophils % 0.3 %; Hematocrit 37.9 % (37.5-50.1); Hemoglobin 12.7 g/dL (12.9-16.9); Lymphocytes # 0.7 K/mcL (0.6-4.6); Lymphocytes % 9.6 %; Mean Corpuscular HGB Conc 33.5 g/dL (31.6-35.5); Mean Corpuscular Hemoglobin 33.1 pg (28.0-33.3); Mean Corpuscular Volume 98.7 fL (83.0-100.0); Mean Platelet Volume 11.3 fL (9.4-12.4); Monocytes # 0.2 K/mcL (0.0-1.3); Monocytes % 2.3 %; Platelet Count 117 K/mcL (140-400); Red Blood Count 3.84 M/mcL (4.19-5.50); Red Cell Distribution Width 13.6 % (11.5-14.5); Segmented Neutrophils % 86.8 %
[2017-09-01 05:47] LABS: BUN/Creatinine Ratio 28 (6-26); Blood Urea Nitrogen 24 mg/dL (8-23); Calcium 9.3 mg/dL (8.6-10.3); Carbon Dioxide 30 mEq/L (23-29); Chloride 101 mEq/L (98-107); Glucose 148 mg/dL (70-105); Osmolality,Calculated 289 (280-300); Potassium 3.3 mEq/L (3.5-5.1); Sodium 136 mEq/L (136-145); eGFR For African Americans > 60 (> 60); eGFR For Non-African Americans > 60 (> 60)
[2017-09-01 05:54] LABS: Neutrophils # 6.2 K/mcL (1.6-8.9)
[2017-09-01 05:56] LABS: Platelet Estimate Normal (Normal)
[2017-09-01] MEDS: *HR* Enoxaparin 30 MG/0.3 ML SYRINGE SQ SCH (05:58)
[2017-09-01 07:12] VITALS: BP 163/87
[2017-09-01] MEDS: *HR* LORazepam 0.5 MG TABLET PO SCH (08:31)
[2017-09-01] MEDS: Oseltamivir Phosphate 30 MG CAPSULE PO SCH (08:31)
[2017-09-01] MEDS: Lisinopril 20 MG TABLET PO SCH (08:31)
[2017-09-01] MEDS: amLODIPine 5 MG TABLET PO SCH (08:31)
[2017-09-01] MEDS: Aspirin 81 MG TAB.CHEW PO SCH (08:31)
--- NOTE | 2017-09-01 11:03 | Discharge Summary ---
- NOTES TO OUTPATIENT PROVIDER Notes to Outpatient Provider: Follow up with PCP in 2-3 days after discharge. Recheck BMP at that time (mild hyponatremia and REYES). Date of Encounter: 09/01/17 Time of Encounter: 10:59 - Discharge Diagnosis (1) COPD exacerbation Priority: Primary Status: Acute (2) Pneumonia Priority: Secondary Status: Suspected Qualifiers: Pneumonia type: due to unspecified organism Laterality: right Lung location: middle lobe of lung Qualified Code(s): J18.1 - Lobar pneumonia, unspecified organism (3) Acute kidney injury Priority: Secondary Status: Resolved (4) HLD (hyperlipidemia) Priority: Secondary Status: Chronic Qualifiers: Hyperlipidemia type: unspecified Qualified Code(s): E78.5 - Hyperlipidemia , unspecified (5) HTN (hypertension), benign Priority: Secondary Status: Chronic (6) Hyponatremia Priority: Secondary Status: Resolved (7) DVT prophylaxis Priority: Secondary Status: Acute Hospital course: Mr. Branch is a 76 year old male admitted for acute exacerbation of COPD, acute kidney injury, and suspected pneumonia/influenza. He was admitted to ICU. He was started on IV levaquin and PO tamiflu. He was started on IVF. He was started on IV solumedrol. He was started supplemental O2 and nebulizer treatments. He improved next day and was transferred to general medical floor. His respiratory status continued to improve throughout hospitalization. REYES and hyponatremia resolved the day after admission, and renal function is normal on day of discharge. He will be discharged with full course of levaquin, tamiflu, and prednisone taper. He will get new prescription for nebulizer machine and duonebs. He will follow up with PCP in 2-3 days after discharge. Patient has met maximum benefit of this hospitalization and will be discharged home in stable condition. Discharge discussed with: patient, nurse - Time Spent with Patient Total time spent providing and/or coordinating discharge services: Greater than 30 minutes - Discharge Medications Prescriptions: Ipratropium/Albuterol Neb [Duoneb] 3 ml IH [id number] #30 vial Levofloxacin [Levaquin] 750 mg PO Q48H 4 Days #2 tablet Oseltamivir Phosphate [Tamiflu] 30 mg PO BID 3 Days #5 capsule predniSONE [PredniSONE] See Taper PO DAILY 12 Days #30 tablet Home Medications: Aspirin 81 mg PO DAILY 05/22/16 [History] LORazepam [Ativan] 0.5 mg PO TID 05/22/16 [History] Lisinopril [Zestril] 20 mg PO BID 05/22/16 [History] Simvastatin [Zocor] 20 mg PO HS 05/22/16 [History] Amlodipine Besylate 2.5 mg PO DAILY 08/29/17 [History] Ipratropium/Albuterol Neb [Duoneb] 3 ml IH [id number] #30 vial 09/01/17 [Rx] Levofloxacin [Levaquin] 750 mg PO Q48H 4 Days #2 tablet 09/01/17 [Rx] Oseltamivir Phosphate [Tamiflu] 30 mg PO BID 3 Days #5 capsule 09/01/17 [Rx] predniSONE [PredniSONE] See Taper PO DAILY 12 Days #30 tablet 09/01/17 [Rx] Allergies/Adverse Reactions: 3 Allergy/AdvReac Type Severity Reaction Status Date / Time No Known Allergies Allergy Verified 08/29/17 11:16 Date of admission: 08/29/17 21:41 Primary care physician: Christiano Prater MD Discharging clinician: Luisito Genao Anticipated date of discharge: 09/01/17 - Constitutional Vitals: Temp Pulse Resp BP Pulse Ox 97.9 F 101 17 163/87 100 09/01/17 07:09 09/01/17 07:09 09/01/17 10:29 09/01/17 07:09 09/01/17 10:29 General appearance: Present: cooperative, A&O X 3, pleasant, no acute distress, answers questions appropriately - Respiratory Respiratory exam: Absent: accessory muscle use, rales, rhonchi Additional comments: Normal WOB, rare expiratory wheeze much improved from yesterday - Cardiovascular Cardiovascular exam: Present: RRR, +S1, +S2. Absent: diastolic murmur, gallop, rubs, systolic murmur Additional comments: No BLE edema - GI/Abdominal GI/Abdominal exam: Present: normal bowel sounds, soft. Absent: distended, hepatomegaly, mass, splenomegaly, tenderness - Psychiatric Psychiatric exam: Present: normal affect, normal mood. Absent: anxious, depressed - Skin Skin exam: Present: dry, intact, warm. Absent: cyanosis, rash - Patient Status Disposition: Home, Self-Care Condition: Fair Overall status at discharge: patient is progressing back to baseline - Discharge Instructions Follow Up With: Christiano Prater MD [Primary Care Provider] - Additional Instructions: Follow up with PCP in 2-3 days after discharge. Recheck BMP at that time (mild hyponatremia and REYES). - Diet and Activity Activity: resume usual activities as tolerated Diet: low fat, low cholesterol, low salt diet, other (Cardiac)
== END 2017-09-01 12:48 | disposition home or self-care (01) | DRG 190 ==
LOC: ICNU 09:05 → EMEROO 09:05 → ICNU 14:51 → 2ANU 08-30 13:45
PROVIDERS: ADMIT Hospitalist; ATTEND Internal Medicine

== ENCOUNTER 2018-02-06 06:50 | Inpatient (IN) ==
[~2018-02-06 06:50] MED LIST: Vancomycin 1,000 MG, Sodium Chloride IRRigation 1,000 ML IR ONE
[2018-02-06] MEDS ORDERED: *HR* FentaNYL (PF) 100 MCG/2 ML VIAL ONE (06:52)
[2018-02-06] MEDS ORDERED: *HR* Propofol 200 MG/20 ML VIAL IVP ONE (06:52)
[2018-02-06] MEDS ORDERED: Dexamethasone 4 MG/ML VIAL ONE (06:53)
[2018-02-06] MEDS ORDERED: *HR* Heparin 5,000 UNIT/ML VIAL ONE (06:53)
[2018-02-06] MEDS ORDERED: Ondansetron 4 MG/2 ML VIAL ONE (06:53)
[2018-02-06] MEDS ORDERED: Lidocaine -MPF 2% 2 ML VIAL ONE ×2 (06:53→08:44)
[2018-02-06] MEDS ORDERED: Heparin 1,000 UNITS/500 mL 0 ML ONE (07:00)
[2018-02-06] MEDS ORDERED: Albuterol 2.5 MG/3 ML NEBULIZER IH ONE (07:10)
[2018-02-06] MEDS ORDERED: CeFAZolin Syr 2,000MG/20 ML 2,000 MG/20 ML SYRINGE IVPB ONE (07:10)
[2018-02-06] MEDS ORDERED: Ringers Solution, Lactated 1,000 ML IVC SCH (07:15)
--- NOTE | 2018-02-06 07:17 | History & Physical Report ---
Date of Encounter: 02/06/18 Time of Encounter: 07:12 24 Hour HP Update - Instructions Instructions: If the History and Physical is less than 30 days old and was completed prior to A.M. admission and or procedure and has NOT been updated on calendar day of procedure please complete this update prior to performing procedure. - Update Patient reports changes in Medical Condition: No Changes in examination, assessment, or condition: No Changes in Medication: No Preop tests/diagnostics Reviewed: Yes Surgery Remains Indicated: Yes Consent for Planned Operative Procedure(s) Verified: Yes - Pre-Operative Checklist Preoperative Checklist Indicated: Yes Prophylactic Antibiotic Ordered: Yes (Vancomycin due to MRSA risk) Home Medications Include Beta Laya: No Beta Laya Taken Today (Day of Surgery): No Beta Laya Taken Yesterday (Day Prior to Surgery): No Is VTE Prophylaxis Indicated?: Yes
--- NOTE | 2018-02-06 07:59 | Anesthesia Evaluation PreOp ---
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: CVA (pt states no residual deficits), Other (carotid stensosis s/p L CEA) Other Medical History: Other (macular degeneration, hard of hearing, hyponatremia(chronic)) Anesthesia History: No Prior Anesthetic Complications, Past Anesthesia (L CEA, L upper lobectomy, obi ing hernia repair) Alcohol Use: rarely Drug use: none Medications and Allergies Aspirin 81 mg PO DAILY 05/22/16 [History] LORazepam [Ativan] 0.5 mg PO TID 05/22/16 [History] Lisinopril [Zestril] 20 mg PO BID 05/22/16 [History] Simvastatin [Zocor] 20 mg PO HS 05/22/16 [History] Amlodipine Besylate 2.5 mg PO DAILY 08/29/17 [History] Ipratropium/Albuterol Neb [Duoneb] 3 ml IH [id number] #30 vial 09/01/17 [Rx] 3 Allergy/AdvReac Type Severity Reaction Status Date / Time No Known Allergies Allergy Verified 02/06/18 07:54 - Meds/Allergy Pre-op Review Medications Reviewed: Yes Allergies Reviewed: Yes Beta Blockers on Current Med List: No Anesthesia Results - Labs Laboratory Tests 01/28/18 01/28/18 01/28/18 12:06 12:06 12:06 WBC 4.8 Hgb 13.5 Hct 38.7 Plt Count 176 PT 11.8 INR 1.0 APTT 34.5 Sodium 126 L Potassium 4.2 Chloride 94 L Carbon Dioxide 27 BUN 24 H Creatinine 1.10 Glucose 130 H - Imaging EKG: report reviewed (SINUS TACHYCARDIA BORDERLINE RIGHT AXIS DEVIATION [QRS AXIS > 90] ABNORMAL RHYTHM ECG Electronically Signed On 08-29-2017 11:30:43 EDT by Adelso Abad MD) Anesthesia Exam O2 Sat Height 1.66 m Height 1.66 m Height 1.66 m Weight 49.895 kg Weight 49.895 kg Weight 49.895 kg O2 Sat by Pulse Oximetry 97 O2 Sat by Pulse Oximetry 97 Vital Signs Temp Pulse Resp BP Pulse Ox 98.2 F 94 16 159/69 97 02/06/18 07:17 02/06/18 07:17 02/06/18 07:17 02/06/18 07:17 02/06/18 07:17 NPO (# of Hours): >8 - HEENT Pupil (Motor): Pupils equal, EOMI Mallampati: II Teeth: Edentulous Oral Opening: Greater than 3 - 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
[2018-02-06] MEDS ORDERED: *HR* Midazolam HCl 2 MG/2 ML VIAL ONE (08:43)
[2018-02-06] MEDS ORDERED: *HR* Phenylephrine 10 MG/ML VIAL ONE ×2 (08:45→13:51)
[2018-02-06] MEDS ORDERED: *HR* Remifentanil 2 MG VIAL IVP ONE (08:51)
[2018-02-06] MEDS ORDERED: Heparin 1,000 UNITS/500 mL 1,000 ML ONE (09:10)
[2018-02-06] MEDS ORDERED: Lidocaine -MPF 4% 5 ML AMPUL ONE (09:14)
[2018-02-06] MEDS ORDERED: Lidocaine -MPF 1% 5 ML AMPUL ONE (09:14)
[2018-02-06] MEDS ORDERED: EPHEDrine 50 MG/ML VIAL ONE (09:18)
[2018-02-06] MEDS ORDERED: *HR* PHENYLEPHRINE 1,000 MCG/10 ML SYRINGE IVP ONE ×3 (10:17→13:48)
[2018-02-06] MEDS ORDERED: Esmolol 100 MG/10 ML VIAL IVP ONE (11:51)
[2018-02-06 12:39] LABS: ABG Base Excess -5 mEq/L (-2 to 3); ABG Chloride 98 mEq/L (98-107); ABG Glucose 169 mg/dL (60-95); ABG HCO3 22 mEq/L (21-27); ABG Ionized Calcium 1.14 mmol/L (1.15-1.35); ABG Oxygen Saturation 100 % (95-98); ABG PCO2 50 mmHg (35-45); ABG PH 7.25 pH Units (7.32-7.45); ABG PO2 343 mmHg (85-104); ABG TCO2 24 mEq/L (20-26)
[2018-02-06 13:37] LABS: ABG Base Excess -11 mEq/L (-2 to 3); ABG Chloride 105 mEq/L (98-107); ABG Glucose 180 mg/dL (60-95); ABG HCO3 17 mEq/L (21-27); ABG Ionized Calcium 1.28 mmol/L (1.15-1.35); ABG Oxygen Saturation 100 % (95-98); ABG PCO2 52 mmHg (35-45); ABG PH 7.14 pH Units (7.32-7.45); ABG PO2 307 mmHg (85-104); ABG TCO2 19 mEq/L (20-26)
[2018-02-06] MEDS ORDERED: SUGAMMADEX SODIUM 500 MG/5 ML VIAL IV ONE (14:29)
[2018-02-06] MEDS ORDERED: *HR* HYDROmorphone (PF) 1 MG/ML SYRINGE ONE (14:34)
[2018-02-06 14:55] LABS: ABG Base Excess -12 mEq/L (-2 to 3); ABG Chloride 104 mEq/L (98-107); ABG Glucose 173 mg/dL (60-95); ABG HCO3 19 mEq/L (21-27); ABG Ionized Calcium 1.11 mmol/L (1.15-1.35); ABG Oxygen Saturation 100 % (95-98); ABG PCO2 59 mmHg (35-45); ABG PO2 501 mmHg (85-104); ABG TCO2 20 mEq/L (20-26)
--- NOTE | 2018-02-06 15:47 | Operative Note ---
Date of procedure: 02/06/18 Pre-op diagnosis: Peripheral vascular disease Post-op diagnosis: same Procedure: 1. Aortobifemoral bypass graft placement with 16 x 8 mm Hemashield Dacron graft. 2. Right common femoral and deep femoral artery endarterectomy. 3. Left femoral and deep femoral artery endarterectomy. Complications: None Anesthesia: GETA Surgeon: Juan King Was there an assistant to the vice president present: Yes Log Chipper Operator: Rigo Nagel Estimated blood loss (cc): 1,000 (500ml returned via Cell Saver) Specimen: Arterial plaque Condition: stable (*) Disposition: ICU Procedure in Detail: Indications: The patient is a 77-year-old male with severe peripheral vascular disease. CT scan reveals severe aortic, iliac and femoral artery disease. The patient was also noted to have a juxtarenal abdominal aortic aneurysm. The severity of his disease and aortobifemoral bypass was recommended. Procedure: The patient was identified in the preoperative area. The risks, benefits, and alternatives of the procedure were discussed and questions were answered. The patient was taken to the operating room and placed in supine position on the operating room table. After the induction of general endotracheal anesthesia, he was cleaned and draped in normal sterile fashion. An oblique incision was made over the right groin sharply. Hemostasis was obtained with electrocautery. Through a process of blunt, sharp, and electrocautery dissection, the right common, deep and superficial femoral arteries were dissected circumferentially and surrounded with vessel loops. An oblique incision was then made over the left groin sharply. Hemostasis was obtained with electrocautery. Through a process of blunt, sharp, and electrocautery dissection, the left common, deep and superficial femoral arteries were dissected circumferentially and surrounded with vessel loops. A midline incision was made sharply. Hemostasis was obtained via electrocautery. Through a process of blunt, sharp and electrocautery dissection , the subcutaneous tissue, fascia and peritoneum were traversed. A brief exporation of the peritoneum revealed no acute pathology. The aorta was palpated in the retroperitoneum. The retroperitoneum was then opened with blunt , sharp and electrocautery dissection. The aorta was dissected along it's anterior, medial and lateral surfaces to below the renal arteries. Dense calcifications, significant inflammation and the aortic aneurysm were noted. The dissection was extended down to the aortic bifurcation. A clamp was used to tunnel through the retroperitoneum to each of the bilateral femoral vessels.. The patient received 5000 units of intravenous heparin. Additional heparin throughout the case to maintain anticoagulation. A 16 x 8mm dacron bifurcated graft was cut to appropriate length. The infrarenal aorta was clamped just below the renal arteries. The aortic bifurcation was then clamped.. A longitudinal incision was made into the aorta between the clamps and the aorta was opened proximally and distally along its medial and lateral surfaces. Significant plaque and thrombus was removed from the aorta. The lumbar vessels were oversewn with 0 silk suture ligatures.. The aorta was flushed by releasing the clamp and a large organized thrombus emerged. The aorta was clamped again and infused with heparinized saline. The aortic bifurcation was oversewn with a 3-0 Prolene suture. The graft was cut to fit the defect and sutured in place with a running 3-0 prolene. After completing the anastamosis, the graft limbs were clamped and the aorta was reopened. Thrombin and gelfoam were used to aid in hemostasis. Significant bleeding was noted from one needle hole on the lateral surfaces of anastomosis. A pledgeted 3-0 Prolene suture was used to obtain hemostasis. The graft limbs were then tunneled to the femoral vessels. The bilateral femoral vessels were occluded and longitudinal arteriotomies were made in the common femoral arteries. The bilateral common femoral arteries were nearly occluded with dense calcified plaque. This plaque extended into the bilateral deep femoral arteries. The bilateral superficial femoral artery to be chronically occluded. Using a dental freer a right and then left common and deep femoral endarterectomy was performed. Distal endpoints were inspected and no elevated flaps were noted. Retrograde flow was noted through the deep femoral arteries upon release of the vessel loops. The lumens were flushed with heparinized saline. The graft limbs were cut to fit the defects and sutured in place with a running 6-0 Prolene. Prior to completing the anastamoses, the femoral vessels were flushed through the graft anastamoses and heparin was infused into the lumen. The anastamoses were completed and flow was restored in the right lower extremity. After assuring appropriate hemodynamics flow was restored to the left lower extremity. Thrombin and gelfoam were used to aid in hemostasis. Polyphasic signals were noted distal to the anastamoses. The wounds were irrigated with antibiotic-containing saline. Platelet rich and platelet poor plasma were infused into the wounds. Meticulous hemostasis was obtained throughout the wounds with electrocautery. The femoral wounds were reapproximated with layers of 2-0 and 3-0 Vicryl. Skin was reapproximated with 3-0 Monocryl. The abdomen and pelvis were irrigated with antibiotic containing saline. Meticulous hemostasis was obtained throughout the retroperitoneum with electrocautery. The retroperitoneum was reapproximated with 2-0 Vicryl. The abdominal contents were returned to their normal anatomic position The nasogastric tube was checked for position. The Fascia was reapproximated with looped PDS suture. The subcutaneous tissue was reapproximated with 2-0 Vicryl. Platelet rich and platelet poor plasma were infused into the wound. Skin was reapproximated with 3-0 Monocryl. Sterile dressings were applied. The patient was extubated and taken to the intensive care unit in stable condition.
[2018-02-06] MEDS ORDERED: OXYCODONE Oral CONC 10 MG/0.5 ML ORAL.SYG SL PRN (16:03)
[2018-02-06] MEDS ORDERED: *HR* Labetalol 20 MG/4 ML SYRINGE IVP PRN (16:03)
[2018-02-06] MEDS ORDERED: Naloxone 0.4 MG/ML INJ IVP PRN (16:03)
[2018-02-06] MEDS ORDERED: 0.9 % Sodium Chloride 1,000 ML IVC SCH (16:03)
[2018-02-06] MEDS ORDERED: 0.9 % Sodium Chloride 1,000 ML ONE (16:04)
[2018-02-06] MEDS: Ipratropium/Albuterol Neb 3 ML IH SCH ×2 (16:14→21:18)
[2018-02-06] MEDS ORDERED: 0.9 % Sodium Chloride 500 ML IVC ONE (16:18)
--- NOTE | 2018-02-06 16:18 | Operative Note ---
Date of procedure: 02/06/18 Pre-op diagnosis: Aortoiliac occlusive disease and aortic aneurysm Post-op diagnosis: same Procedure: Aortobifemoral bypass graft with 16 x 8 mm dacron prosthesis Bilateral common femoral endarterectomy Complications: None Anesthesia: KINZAA Surgeon: Juan King Co-Surgeon: Rigo Nagel Was there an team assistant present: No Estimated blood loss (cc): 1,000 (500 mL returned from Cell Saver) Specimen: Aortic and bilateral femoral arterial plaque Condition: stable Disposition: ICU Procedure in Detail: History Robert Branch is a 77-year-old white male who was found to have severe bilateral lower extremity arterial occlusive disease. Workup had revealed diffuse aortoiliac and common femoral artery disease. He also has a small aneurysm in the juxtarenal area. The patient now comes for direct revascularization as he is not an appropriate candidate for endovascular therapy. Procedure After informed consent was obtained the patient was taken to the operating room. An arterial line was placed. General endotracheal anesthesia was established. The abdomen and groins were sterilely prepped and draped. A timeout protocol was observed. A 2 team surgical approach was utilized for this procedure due to the patient's comorbid conditions. This would also facilitate intraoperative complex decision making and accelerate the procedure to minimize complications associated with prolonged general anesthesia and hypothermia and blood loss. Incisions were made in the groin area to expose the common femoral artery bilaterally. These vessels were normal in size but densely calcified and very rigid. Controls obtained of the vessels proximally and distally. A longitudinal incision was then made in the abdomen with dissection through the peritoneal membrane. The viscera was found to be within normal limits. Dissection was then conducted to open the retroperitoneum and expose the aorta. The left renal vein was anterior to the aorta and was preserved. Dissection was made of the aorta and this revealed the small aneurysm which was a eccentric saccular type aneurysm extending off the antral right lateral aspect of the infrarenal aorta close to the right renal artery. Dissection was conducted so that the left and right renal arteries were specifically identified and a space created below the renal arteries so that a proximal aortic clamp could be placed to achieve inflow control. With this done dissection was then made distally to identify the aortic bifurcation and tunnels were created from the retroperitoneum into the groin. 5000 units heparin were administered intravenously. After appropriate 3 minute delay the distal aorta was clamped and then the proximal aorta was clamped immediately below the renal arteries. A longitudinal arteriotomy was made on the anterior surface of the aorta. A significant amount of calcific plaque was encountered which required endarterectomy so that the backbleeding lumbars could be successfully suture ligated. There was also a small amount of backbleeding through the inferior mesenteric artery. The proximal aorta was then debridement and an end-to-end anastomosis was constructed using a 16 x 8 mm Dacron prosthesis. This was sewn into position using 3-0 Prolene suture. After checking the proximal anastomosis for hemostasis the graft limbs were then clamped specifically and then passed through the previously created retroperitoneal tunnels. The common femoral arteries were then opened with 11 blade knife on the anterior surface. These vessels were densely calcified and required a formal endarterectomy bilaterally. The amount of calcific plaque was prolific and required tedious and careful dissection in order to remove this plaque to establish an appropriate area for anastomosis to be created and for runoff into the femoral system distally. After the formal endarterectomy was performed the grafts cut to length and an end of graft to side of artery anastomosis was created with 6-0 Prolene suture. The right lower extremity was opened first. This was performed after appropriate backbleeding and flushing. After this was done and hemostasis was achieved as well as hemodynamic stability the left lower extremity was opened. After this was done the wounds were then irrigated. Hemostasis was achieved at the suture sites. There was insufficient amount of aorta to reconstruct around the synthetic graft. Therefore the retroperitoneum was carefully reconstructed and placed over the anterior surface of the synthetic graft. The viscera was all viable without signs of ischemia or bleeding. The NG tube was then checked to be in appropriate position in the stomach. The abdomen was irrigated again and then the fascia was closed with looped PDS sutures. Skin edges were closed with Monocryl. The groin incisions were closed with Vicryl and Monocryl as well. Dry sterile dressings were applied. As noted elsewhere the patient had 500 mL's of cell saver returned during the operation. 2 units of blood were also administered intraoperatively. The patient was taken from the operating room to the intensive care unit following the operation.
[2018-02-06] MEDS ORDERED: *HR* FentaNYL (PF) 100 MCG/2 ML VIAL IVP PRN (16:19)
[2018-02-06] MEDS: 0.9 % Sodium Chloride 1,000 ML IVC SCH ×2 (16:38→22:25)
[2018-02-06 16:40] LABS: Basophils % 0.2 %; Eosinophils % 0.2 %; Hematocrit 41.4 % (37.5-50.1); Hemoglobin 14.3 g/dL (12.9-16.9); Immature Granulocytes % 1.2 % (0-4); Lymphocytes % 6.5 %; Mean Corpuscular HGB Conc 34.5 g/dL (31.6-35.5); Mean Corpuscular Hemoglobin 33.6 pg (28.0-33.3); Mean Corpuscular Volume 97.4 fL (83.0-100.0); Monocytes # 0.6 K/mcL (0.0-1.3); Monocytes % 3.7 %; Neutrophils # 13.3 K/mcL (1.6-8.9); Platelet Count 165 K/mcL (140-400); Red Blood Count 4.25 M/mcL (4.19-5.50); Red Cell Distribution Width 14.1 % (11.5-14.5); Segmented Neutrophils % 88.2 %
[2018-02-06 16:46] LABS: INR 1.2; Prothrombin Time 13.2 Seconds (9.4-12.1)
[2018-02-06 16:49] LABS: Activated Partial Thrombo Time 83.4 Seconds (26.0-36.0)
[2018-02-06 16:58] LABS: BUN/Creatinine Ratio 24 (6-26); Blood Urea Nitrogen 24 mg/dL (8-23); Calcium 7.2 mg/dL (8.6-10.3); Carbon Dioxide 18 mEq/L (23-29); Chloride 108 mEq/L (98-107); Glucose 180 mg/dL (70-105); Magnesium 1.6 mg/dL (1.6-2.6); Osmolality,Calculated 281 (280-300); Potassium 4.4 mEq/L (3.5-5.1); Sodium 131 mEq/L (136-145); eGFR For Non-African Americans > 60 (> 60)
[2018-02-06] MEDS: *HR* Metoprolol 5 MG/5 ML VIAL IVP SCH (17:33)
--- NOTE | 2018-02-06 18:50 | Anesthesia Evaluation Post Op ---
Date of Encounter: 02/06/18 Time of Encounter: 18:49 - Vital Signs Vital Signs: Vital Signs/O2 Sat, Most Current Temp Pulse Resp BP Pulse Ox 96.8 F L 83 24 112/59 100 02/06/18 17:00 02/06/18 18:00 02/06/18 18:00 02/06/18 18:00 02/06/18 18:00 - Lungs Lungs: Clear Ascult./Percussion - Airway Airway: Non-obstructed - Cardiovascular Regular Rate - Mental Status Mental Status: Baseline Status - Pain Pain Scale: 0 Pain Scale used: Numeric (1 - 10) - Nausea Vomiting Nausea Vomiting: Not Present - Hydration Hydration: NPO, Ordonez catheter - Discharge PostOp Status: Transfer Patient to floor
[2018-02-06] MEDS: OXYCODONE Oral CONC 10 MG/0.5 ML ORAL.SYG SL PRN (22:53)
[2018-02-07] MEDS: *HR* Metoprolol 5 MG/5 ML VIAL IVP SCH ×4 (00:18→19:15)
[2018-02-07] MEDS: Ipratropium/Albuterol Neb 3 ML IH SCH ×4 (03:38→21:21)
[2018-02-07 04:03] LABS: Basophils % 0.1 %; Hematocrit 37.2 % (37.5-50.1); Hemoglobin 12.9 g/dL (12.9-16.9); Immature Granulocytes % 0.8 % (0-4); Lymphocytes # 0.3 K/mcL (0.6-4.6); Lymphocytes % 2.1 %; Mean Corpuscular HGB Conc 34.7 g/dL (31.6-35.5); Mean Corpuscular Hemoglobin 33.6 pg (28.0-33.3); Mean Corpuscular Volume 96.9 fL (83.0-100.0); Mean Platelet Volume 10.8 fL (9.4-12.4); Monocytes # 0.8 K/mcL (0.0-1.3); Neutrophils # 12.5 K/mcL (1.6-8.9); Platelet Count 108 K/mcL (140-400); Red Blood Count 3.84 M/mcL (4.19-5.50); Red Cell Distribution Width 14.2 % (11.5-14.5)
[2018-02-07 04:14] LABS: Calcium 7.7 mg/dL (8.6-10.3); Magnesium 1.8 mg/dL (1.6-2.6); Potassium 4.7 mEq/L (3.5-5.1)
[2018-02-07 04:17] LABS: Acanthocytes 1+ (Not Present); Platelet Estimate Decreased (Normal); Poikilocytosis 1+ (Not Present)
[2018-02-07 04:18] LABS: Reactive Lymphocytes Present (Not Present)
[2018-02-07] MEDS ORDERED: 0.9 % Sodium Chloride 500 ML IVC ONE (06:27)
--- NOTE | 2018-02-07 07:58 | Vascular/[facility] Progress Note ---
Date of Encounter: 02/07/18 Time of Encounter: 07:40 - Assessment and plan (1) Atherosclerotic peripheral vascular disease with rest pain Current Visit: Yes Status: Chronic The patient is postoperative day #1 after aortobifemoral bypass about femoral endarterectomies. His bilateral lower extremity is her improved since preoperatively. He now denies any rest pain. He has palpable femoral pulses bilaterally. He has significant outflow disease bilaterally. His pedal signals are present but diminished bilaterally but more on the left. He has no signs of compartment syndrome. His sensory exam and motor exam remained intact. He removed his abdominal and left groin bandages yesterday. They were replaced. His NG tube was removed this morning. He will remain nothing by mouth until he has adequate signs of return of bowel function. His abdomen is soft. He has no rebound or guarding. He has incisional pain. We will recheck his lactic acid later today. Patient remained in the ICU this morning. Begin physical therapy, occupational therapy and social science analyst consultation. (2) Chronic kidney disease, stage III (moderate) Current Visit: Yes Status: Chronic The patient has chronic kidney disease stage III. His creatinine has increased postoperatively. He received a fluid bolus this morning and will continue with intravenous hydration today. His chemistries will be rechecked at noon. His Ordonez was discontinued this morning while he was confused and pulling on his catheter. We will need to monitor his urine output closely. He may ultimately require replacement of his catheter or straight catheterization. (3) HTN (hypertension), benign Current Visit: No Status: Chronic (4) HLD (hyperlipidemia) Current Visit: No Status: Chronic Qualifiers: Hyperlipidemia type: unspecified Qualified Code(s): E78.5 - Hyperlipidemia , unspecified - Subjective Interval history: The patient is alert and comfortable today. He denies any significant abdominal pain and he reports that his legs feel better postoperatively than it did preoperatively. He denies any fevers or chills. He reports adequate pain control. He reports he is thirsty. He denies chest pains or shortness of breath. Vital Signs, Last 4 Hours Temp Pulse Resp BP Pulse Ox 02/07/18 06:02 93 19 132/77 97 02/07/18 05:00 98 19 133/75 95 02/07/18 04:35 98.1 F 02/07/18 04:00 96 19 155/89 95 - Physical Examination General: Present: Conversant HEENT: Present: Pupils equal Neck: Absent: JVD Cardiac: Present: Reg Rate and Rhythm Lungs: Present: No Wheeze, Rales, Rhonchi Neuro: Present: Alert and responsive, Motor nerves grossly intact, Sensory nerves grossly intact Vascular: Present: Normal capillary refill, Pulse, diminished (Right posterior tibial signal is biphasic, left peroneal signal is monophasic.), Pulse, normal ( Femoral pulses are palpable bilaterally), Surgical incisions (Clean, dry and intact without erythema or drainage.). Absent: Cyanosis, Edema Skin: Present: No rashes noted on visualized skin Musculoskeletal: Present: No Chest Wall Tenderness - VTE Documentation of Mechanical Device: Intermittent pneumatic compression device Results 02/07/18 03:45 02/07/18 03:45 Lab Results, Last 24 hours 02/06/18 02/06/18 02/06/18 16:20 16:20 16:20 WBC 15.0 H Hgb 14.3 Hct 41.4 Plt Count 165 INR 1.2 APTT 83.4 H Sodium 131 L Potassium 4.4 Chloride 108 H Carbon Dioxide 18 L BUN 24 H Creatinine 1.01 Glucose 180 H Calcium 7.2 L Magnesium 1.6 02/07/18 02/07/18 03:45 03:45 WBC 13.7 H Hgb 12.9 Hct 37.2 L Plt Count 108 L INR APTT Sodium 134 L Potassium 4.7 Chloride 107 Carbon Dioxide 18 L BUN 33 H Creatinine 1.63 H Glucose 189 H Calcium 7.7 L Magnesium 1.8 Consult Discharge Plan - Plan Referrals: Christiano Prater MD [Primary Care Provider] - (Per Dr. Mendes Office patient has to make their own appointment) Juan King MD [Partnered Physician] - 03/04/18 3:00 pm
[2018-02-07] MEDS: 0.9 % Sodium Chloride 1,000 ML IVC SCH ×3 (08:24→19:53)
[2018-02-07] MEDS ORDERED: Aspirin 81 MG TAB.CHEW PO SCH (09:00)
[2018-02-07] MEDS: OXYCODONE Oral CONC 10 MG/0.5 ML ORAL.SYG SL PRN (10:00)
[2018-02-07 12:53] LABS: Albumin 2.8 g/dL (3.5-5.7); Albumin/Globulin Ratio 1.3 (1.1-2.2); Bilirubin,Total 0.8 mg/dL (0.3-1.0); Calcium 7.9 mg/dL (8.6-10.3); Globulin 2.1 g/dL (2.4-3.5); Potassium 4.9 mEq/L (3.5-5.1); Total Protein 4.9 g/dL (6.4-8.9)
[2018-02-07] MEDS ORDERED: *HR* LORazepam 2 MG/ML VIAL IVP PRN ×2 (16:13→17:11)
[2018-02-07] MEDS ORDERED: Calcium Gluconate 2,000 MG in 0.9 % Sodium Chloride 100 ML IVPB ONE (16:15)
--- NOTE | 2018-02-07 16:19 | Vascular/[facility] Progress Note ---
Date of Encounter: 02/07/18 Time of Encounter: 16:00 - Assessment and plan (1) Atherosclerotic peripheral vascular disease with rest pain Current Visit: Yes Status: Chronic The patient appears comfortable this afternoon. He is hemodynamically stable. He was seen by physical therapy and rehabilitation is recommended. The abdomen is soft. His incisions appear to be healing. He has palpable femoral pulses bilaterally. His compartment are soft. He has no signs or symptoms of compartment syndrome. He is significant outflow disease particularly in left lower extremity. He has no signs or symptoms of acute limb ischemia. The patient will be transferred to to [facility] this afternoon. He will have repeat laboratory studies in the morning. Continue physical therapy and occupational therapy. (2) Chronic kidney disease, stage III (moderate) Current Visit: Yes Status: Chronic The patient has chronic kidney disease stage III. His creatinine is stable. He will continue with intravenous hydration at this time. His labs were rechecked in the morning (3) HTN (hypertension), benign Current Visit: No Status: Chronic (4) HLD (hyperlipidemia) Current Visit: No Status: Chronic Qualifiers: Hyperlipidemia type: mixed hyperlipidemia Qualified Code(s): E78.2 - Mixed hyperlipidemia - Subjective Interval history: The patient is alert and responds poorly to questions. He denies any significant pain. He reports incisional pain that his well controlled with analgesics at this time. He denies any nausea or vomiting. He denies any chest pain or shortness of breath. Vital Signs, Last 4 Hours Temp Pulse Resp BP Pulse Ox 02/07/18 16:00 109 20 131/72 94 02/07/18 15:41 94 02/07/18 15:30 16 96 02/07/18 15:00 98.0 F 94 18 153/80 95 02/07/18 14:00 90 20 122/70 94 02/07/18 13:00 84 20 158/77 93 - Physical Examination General: Present: Conversant, No Apparent Distress HEENT: Present: Pupils equal Lungs: Present: Normal Breath Sounds Neuro: Present: Alert and responsive, No focal deficits noted Vascular: Present: Normal capillary refill, Surgical incisions (, Dry and intact without erythema or drainage, no hematoma.), Other (Bilateral femoral pulses are palpable. Right pedal select vessels are biphasic. Left peroneal signal is monophasic. Left posterior tibial and anterior tibial is absent). Absent: Cyanosis, Edema Abdomen: Present: Soft Skin: Present: No rashes noted on visualized skin, Other (Bilateral lower extremity compartments are soft) - VTE Documentation of Mechanical Device: Intermittent pneumatic compression device Results 02/07/18 03:45 02/07/18 12:05 Lab Results, Last 24 hours 02/06/18 02/06/18 02/06/18 16:20 16:20 16:20 WBC 15.0 H Hgb 14.3 Hct 41.4 Plt Count 165 INR 1.2 APTT 83.4 H Sodium 131 L Potassium 4.4 Chloride 108 H Carbon Dioxide 18 L BUN 24 H Creatinine 1.01 Glucose 180 H Calcium 7.2 L Magnesium 1.6 Total Bilirubin AST ALT Alkaline Phosphatase 02/07/18 02/07/18 02/07/18 03:45 03:45 12:05 WBC 13.7 H Hgb 12.9 Hct 37.2 L Plt Count 108 L INR APTT Sodium 134 L 134 L Potassium 4.7 4.9 Chloride 107 108 H Carbon Dioxide 18 L 21 L BUN 33 H 34 H Creatinine 1.63 H 1.66 H Glucose 189 H 154 H Calcium 7.7 L 7.9 L Magnesium 1.8 Total Bilirubin 0.8 AST 55 H ALT 24 Alkaline Phosphatase 58 Consult Discharge Plan - Plan Referrals: Christiano Prater MD [Primary Care Provider] - (Per Dr. Mendes Office patient has to make their own appointment) Juan King MD [Partnered Physician] - 03/04/18 3:00 pm
[2018-02-07] MEDS ORDERED: *HR* Labetalol 20 MG/4 ML SYRINGE IVP PRN (17:11)
[2018-02-07] MEDS ORDERED: OXYCODONE Oral CONC 10 MG/0.5 ML ORAL.SYG SL PRN ×2 (17:11)
[2018-02-07] MEDS ORDERED: Naloxone 0.4 MG/ML INJ IVP PRN (17:11)
[2018-02-07] MEDS ORDERED: *HR* FentaNYL (PF) 100 MCG/2 ML VIAL IVP PRN (17:11)
[2018-02-07] MEDS ORDERED: *HR* Metoprolol 5 MG/5 ML VIAL IVP ONE (17:59)
[2018-02-07] MEDS ORDERED: *HR* Heparin 5,000 UNIT/ML VIAL SQ SCH (18:00)
--- NOTE | 2018-02-07 23:05 | Event Note ---
Date of Encounter: 02/07/18 Time of Encounter: 22:34 Alerted by pts. nurse TEREZA Guzman that pt. did not have active Code Status in his chart. Nurse requested that I come and discuss Code Status w/pt. which I did in the presence of his nurse. I asked the pt. whether or not he wished to have his heart re-started in the event that it would stop. After much thought, he stated "no". I then asked Mr. Branch if he wished to be intubated if he stopped breathing, explaining that this is not necessarily long-term. He stated that he had his affairs in order and that he would not like to be intubated. Mr. Branch requested that we not discuss his Code Status decision with his children, to which we agreed. Pt. to be monitored closely for any changes.
[2018-02-08] MEDS: *HR* Metoprolol 5 MG/5 ML VIAL IVP SCH ×4 (00:01→22:13)
[2018-02-08] MEDS: Ipratropium/Albuterol Neb 3 ML IH SCH ×4 (03:33→22:20)
[2018-02-08 04:17] LABS: BUN/Creatinine Ratio 23 (6-26); Blood Urea Nitrogen 31 mg/dL (8-23); Calcium 8.1 mg/dL (8.6-10.3); Carbon Dioxide 19 mEq/L (23-29); Chloride 108 mEq/L (98-107); Glucose 126 mg/dL (70-105); Osmolality,Calculated 290 (280-300); Potassium 4.3 mEq/L (3.5-5.1); Sodium 136 mEq/L (136-145); eGFR For Non-African Americans 51 (> 60)
[2018-02-08 04:30] LABS: Basophils % 0.1 %; Hematocrit 31.4 % (37.5-50.1); Hemoglobin 10.9 g/dL (12.9-16.9); Immature Granulocytes % 0.9 % (0-4); Immature Platelets 5.7 % (1.1-6.1); Lymphocytes # 0.6 K/mcL (0.6-4.6); Mean Corpuscular HGB Conc 34.7 g/dL (31.6-35.5); Mean Corpuscular Hemoglobin 33.1 pg (28.0-33.3); Mean Corpuscular Volume 95.4 fL (83.0-100.0); Mean Platelet Volume 10.9 fL (9.4-12.4); Monocytes % 8.2 %; Neutrophils # 10.6 K/mcL (1.6-8.9); Red Blood Count 3.29 M/mcL (4.19-5.50); Red Cell Distribution Width 14.7 % (11.5-14.5); Segmented Neutrophils % 85.8 %
[2018-02-08 04:33] LABS: Platelet Count 98 K/mcL (140-400)
[2018-02-08] MEDS ORDERED: Aspirin 81 MG TAB.CHEW PO SCH (09:00)
--- NOTE | 2018-02-08 13:20 | Vascular/[facility] Progress Note ---
Date of Encounter: 02/08/18 Time of Encounter: 13:19 - Assessment and plan (1) Acute occlusion of artery of lower extremity Current Visit: Yes Status: Acute Discussion with patient/family: I discussed with his daughter his clinical presentation. I recommended urgent revascularization of the left lower extremity. His aortobifemoral bypass graft is patent. I suspect that the left superficial femoral artery is occluded. I have reviewed his preoperative CT angiogram. The patient has diffuse disease involving the superficial femoral and popliteal arteries. His main runoff to the left lower extremity is via a diseased posterior tibial artery. I would obtain selective angiogram of the left lower extremity confirmed the diagnosis. Most likely he will require a left femoral to below-knee popliteal bypass with fasciotomies. . - Subjective Interval history: Mr. Branch was seen in follow-up. He is status post aortobifemoral bypass and bilateral femoral arteries endarterectomy. The patient is complaining of severe pain in his left foot. He grades it as 8/10 in intensity. He denies any pain in his right lower extremity. He claims that he is not able to move his left foot. He is confused. He is seen wasps on the wall. Vital Signs, Last 4 Hours Temp Pulse Resp BP Pulse Ox 02/08/18 11:07 98.4 F 108 20 165/95 97 02/08/18 10:15 16 168/98 100 02/08/18 10:05 116 168/95 - Physical Examination General: Present: Conversant, No Apparent Distress HEENT: Present: Pupils equal Cardiac: Present: Reg Rate and Rhythm, Normal S1 and S2, No Murmur Lungs: Present: Normal Breath Sounds Neuro: Present: Alert and responsive, Other (The patient is unable to flex or extend his left foot. He does not have any sensation in his left foot area.) Vascular: Present: Capillary refill delayed, Pulse, diminished (The patient has palpable femoral pulses bilaterally. He does not have any pedal pulses bilaterally. He has no popliteal or pedal Doppler signals on the left. He has Doppler signals in the right foot.), Clubbing Abdomen: Present: Soft, Non-tender Skin: Present: Other (The left leg is mottled between the knee and the toes. The left thigh is warm to touch.) Musculoskeletal: Present: No Chest Wall Tenderness - VTE Documentation of Mechanical Device: Intermittent pneumatic compression device Deep Vein Thrombosis/Pulmonary Embolism Present on Admission: No Results 02/08/18 03:03 02/08/18 03:03 Lab Results, Last 24 hours 02/08/18 02/08/18 03:03 03:03 WBC 12.4 H Hgb 10.9 L D Hct 31.4 L Plt Count 98 L Sodium 136 Potassium 4.3 Chloride 108 H Carbon Dioxide 19 L BUN 31 H Creatinine 1.36 H Glucose 126 H Calcium 8.1 L Consult Discharge Plan - Plan Referrals: Christiano Prater MD [Primary Care Provider] - (Per [facility] Office patient has to make their own appointment) Juan King MD [Partnered Physician] - 03/04/18 3:00 pm
[2018-02-08 13:21] LABS: Bilirubin,Urine Negative (Negative); Blood,Urine Large (Negative); Clarity,Urine Clear (Clear); Color,Urine Yellow (Yellow); Glucose,Urine (UA) Normal (Normal); Ketones,Urine Negative (Negative); Leukocyte Esterase,Urine Negative (Negative); Nitrite,Urine Negative (Negative); Protein,Urine 30 mg/dL (Neg-Trace); Specific Gravity,Urine 1.011 (1.010-1.025); Urobilinogen,Urine Normal (Normal)
[2018-02-08] MEDS: 0.9 % Sodium Chloride 1,000 ML IVC SCH ×2 (13:21→22:12)
[2018-02-08 13:24] LABS: Bacteria,Urine None Seen per hpf (None-Few); Hyaline Casts,Urine None Seen per lpf (None-Few); Squamous Epithelial Cell,Urine Moderate per lpf (None-Few); WBC,Urine 0-3 per hpf (0-3)
[2018-02-08] MEDS ORDERED: Heparin 1,000 UNITS/500 mL 1,000 ML ONE ×2 (15:07→18:59)
[2018-02-08] MEDS ORDERED: Isovue-300 50 ML VIAL IVP ONE (15:14)
--- NOTE | 2018-02-08 15:21 | Anesthesia Evaluation PreOp ---
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: CVA (no residual deficit, S/P left CEA) Other Medical History: Other (chronic hyponatremia, macular degeneration) Anesthesia History: No Prior Anesthetic Complications, Past Anesthesia Alcohol Use: rarely Drug use: none Medications and Allergies Aspirin 81 mg PO DAILY 05/22/16 [History] LORazepam [Ativan] 0.5 mg PO TID 05/22/16 [History] Lisinopril [Zestril] 20 mg PO BID 05/22/16 [History] Simvastatin [Zocor] 20 mg PO HS 05/22/16 [History] Amlodipine Besylate 2.5 mg PO DAILY 08/29/17 [History] Ipratropium/Albuterol Neb [Duoneb] 3 ml IH [id number] #30 vial 09/01/17 [Rx] 3 Allergy/AdvReac Type Severity Reaction Status Date / Time No Known Allergies Allergy Verified 02/06/18 07:54 - Meds/Allergy Pre-op Review Medications Reviewed: Yes Allergies Reviewed: Yes Beta Blockers on Current Med List: Yes If Beta Blockers taken, Date/Time (Last Dose taken): 02/08/2018 at 1229 Anesthesia Results - Labs 02/08/18 03:03 02/08/18 03:03 - Imaging EKG: report reviewed (08/29/2017 SINUS TACHYCARDIA BORDERLINE RIGHT AXIS DEVIATION [QRS AXIS > 90] ABNORMAL RHYTHM ECG) Additional studies: 01/09/2018 Stress Impression: Perfusion imaging was negative for ischemia or infarct. Pharmacologic stress ECG is negative for ischemia at level of heart rate achieved. No appreciable change from baseline ECG. Occasional PACs noted during testing. Gated EF = 70%. Anesthesia Exam Vital Signs/O2 Sat/Glucose, Most Recent Temp Pulse Resp BP Pulse Ox 98.4 F 109 20 149/81 97 02/08/18 11:07 02/08/18 12:30 02/08/18 11:07 02/08/18 12:30 02/08/18 11:07 Blood Glucose* 109 Height: 5'5.5"/1.66 m Weight: 121 lbs/55.1 kg NPO (# of Hours): 8 Pain Scale: 8 Pain Scale Used: Numeric (1 - 10) - HEENT Mallampati: II Teeth: Edentulous Oral Opening: Greater than 3 - WOOD SCALER LOC: Confused WOOD SCALER Motor: Normal RUE, Normal LUE, Normal RLE, Normal LLE, Normal Face WOOD SCALER Sensory: Normal: RUE, LUE, RLE, LLE, Face - Cardiac Rhythm: Regular Murmur: Systolic - Pulmonary Breath Sounds: bilateral Clear Respiratory Effort: Symmetrical Anesthesia Assess/Plan ASA Score: 3 (Patient is confused. Consent obtained from daughter. Patient's family understand that patient is at increased risk for perioperative complications including myocardial infarct, arrhythmias, CVA, post op vent support/ICU stay, and . Patient's family wishes to proceed.), E Modified Maura Scale for Level of Consciousness: Anixous, agitated or restless Anesthetic Plan: General Monitoring Plan: Standard Monitors, A-Line Recovery Plan: PACU
[2018-02-08] MEDS ORDERED: *HR* FentaNYL (PF) 100 MCG/2 ML VIAL ONE (15:28)
[2018-02-08] MEDS ORDERED: *HR* Propofol 200 MG/20 ML VIAL IVP ONE (15:28)
[2018-02-08] MEDS ORDERED: *HR* Succinylcholine 200 MG/10 ML VIAL IVP ONE (15:29)
[2018-02-08] MEDS ORDERED: Lidocaine -MPF 2% 2 ML VIAL ONE (15:29)
[2018-02-08] MEDS ORDERED: *HR* Rocuronium Bromide 50 MG/5 ML VIAL ONE (15:29)
[2018-02-08] MEDS ORDERED: *HR* Heparin 5,000 UNIT/ML VIAL ONE ×3 (15:31→19:35)
[2018-02-08] MEDS ORDERED: *HR* Phenylephrine 10 MG/ML VIAL ONE ×4 (15:32→21:06)
[2018-02-08] MEDS ORDERED: Heparin 1,000 UNITS/500 mL 500 ML ONE (15:35)
[2018-02-08] MEDS ORDERED: Albuterol 2.5 MG/3 ML NEBULIZER IH ONE (15:50)
[2018-02-08] MEDS ORDERED: ceFAZolin 2,000 MG in Water for inj. (sterile) 20 ML 20 ML IVP ONE (16:56)
[2018-02-08] MEDS ORDERED: *HR* PHENYLEPHRINE 1,000 MCG/10 ML SYRINGE IVP ONE ×2 (16:58→20:28)
[2018-02-08] MEDS ORDERED: *HR* Vasopressin 20 UNIT/ML VIAL ONE (17:41)
[2018-02-08] MEDS ORDERED: Dexamethasone 4 MG/ML VIAL ONE (18:30)
[2018-02-08] MEDS ORDERED: Ondansetron 4 MG/2 ML VIAL ONE (18:30)
[2018-02-08] MEDS ORDERED: EPHEDrine 50 MG/ML VIAL ONE (19:34)
[2018-02-08] MEDS ORDERED: Protamine Sulfate 50 MG/5 ML VIAL IVP ONE (20:25)
[2018-02-08] MEDS ORDERED: Naloxone 0.4 MG/ML INJ IVP PRN (21:43)
--- NOTE | 2018-02-08 21:59 | Procedure Note ---
Date of procedure: 02/08/18 Pre-op diagnosis: Acute left lower extremity ischemia with neurologic compromise Post-op diagnosis: same Procedure: 1. Embolectomy left femoral bifurcation. 2. Endarterectomy left profunda femoral artery. 3 Left femoral to below knee popliteal bypass with reversed, translocated, ipsilateral greater saphenous vein. 4. 4 compartment fasciotomy. Left lower extremity Anesthesia: GETA Surgeon: Scott Remy Was there an application assistant present: Yes Estimated blood loss (cc): 300 Specimen: Blood clot Pathology: other (Femoral thrombus) Condition: stable Disposition: ICU
[2018-02-08 23:51] LABS: ABG Base Excess -6 mEq/L (-2 to 3); ABG HCO3 20 mEq/L (21-27); ABG Oxygen Saturation 97 % (95-98); ABG PCO2 37 mmHg (35-45); ABG PH 7.33 pH Units (7.32-7.45); ABG PO2 91 mmHg (85-104); ABG TCO2 21 mEq/L (20-26)
--- NOTE | 2018-02-09 00:02 | Anesthesia Evaluation Post Op ---
Date of Encounter: 02/09/18 Time of Encounter: 00:01 - Vital Signs Vital Signs: Vital Signs/O2 Sat, Most Current Temp Pulse Resp BP Pulse Ox 98.5 F 113 30 100/70 100 02/08/18 21:45 02/08/18 23:19 02/08/18 23:19 02/08/18 23:19 02/08/18 23:19 - Lungs Lungs: Clear Ascult./Percussion - Airway Airway: Non-obstructed - Cardiovascular Regular Rate - Mental Status Mental Status: Confused - Pain Pain Scale: 0 - Nausea Vomiting Nausea Vomiting: Not Present - Hydration Hydration: NPO, Ordonez catheter - Discharge PostOp Status: Transfer Patient to floor
[2018-02-09] MEDS: *HR* Metoprolol 5 MG/5 ML VIAL IVP SCH ×2 (00:23→05:32)
[2018-02-09] MEDS: 0.9 % Sodium Chloride 1,000 ML IVC SCH (00:25)
[2018-02-09 01:51] LABS: Basophils % 0.1 %; Lymphocytes % 4.2 %; Red Blood Count 2.85 M/mcL (4.19-5.50); Red Cell Distribution Width 14.9 % (11.5-14.5)
[2018-02-09 01:53] LABS: Hematocrit 28.7 % (37.5-50.1); Hemoglobin 9.7 g/dL (12.9-16.9); Immature Granulocytes % 2.4 % (0-4); Immature Platelets 8.8 % (1.1-6.1); Lymphocytes # 0.6 K/mcL (0.6-4.6); Mean Corpuscular HGB Conc 33.8 g/dL (31.6-35.5); Mean Corpuscular Volume 100.7 fL (83.0-100.0); Segmented Neutrophils % 86.3 %
[2018-02-09 02:06] LABS: BUN/Creatinine Ratio 20 (6-26); Blood Urea Nitrogen 33 mg/dL (8-23); Calcium 7.5 mg/dL (8.6-10.3); Carbon Dioxide 20 mEq/L (23-29); Chloride 107 mEq/L (98-107); Glucose 97 mg/dL (70-105); Neutrophils # 11.7 K/mcL (1.6-8.9); Osmolality,Calculated 289 (280-300); Platelet Count 96 K/mcL (140-400); Potassium 6.8 mEq/L (3.5-5.1); Sodium 136 mEq/L (136-145); eGFR For Non-African Americans 41 (> 60)
[2018-02-09] MEDS ORDERED: *HR* Dextrose 50 % in Water (Syg) 50 ML SYRINGE IVP ONE (02:43)
[2018-02-09] MEDS ORDERED: Calcium Gluconate 2,000 MG in 0.9 % Sodium Chloride 100 ML IVPB ONE (02:43)
[2018-02-09] MEDS ORDERED: Insulin Human Regular 10 UNIT in 0.9 % Sodium Chloride 10 ML IV ONE (02:43)
[2018-02-09] MEDS ORDERED: *HR* Dextrose 50 % in Water (Syg) 50 ML SYRINGE ONE (02:46)
[2018-02-09] MEDS ORDERED: Artificial Tears SOLN 15 ML BOTTLE BOTH EYES PRN (03:11)
--- NOTE | 2018-02-09 03:12 | Event Note ---
Date of Encounter: 02/09/18 Time of Encounter: 03:00 Patient's nurse called to have patient evaluated for worsening respiratory status, increased work of breathing and respiratory rate of 30. Nurse had apparently called the vascular surgeon who operated on him prior to arrival to the ICU, and he was surprised that the patient was extubated after his surgery. His bed side monitor also appeared to show ST depressions. Upon my assessment patient had saturations of 100% on 2L, lung exam revealed wheezing but no rhonchi, which improved after a breathing treatment. Respiratory therapy evaluated the patient as well agreed to continue breathing treatments. Did not feel that patient would tolerate BiPAP as he has a history of agitation and pulling out his lines. I ordered an ABG to be drawn, which showed pH of 7.33, pCO2 of 37 pO2 of 91, essentially within normal limits. CBC, BMP, chest x-ray, EKG and a troponin were also ordered. BNP was ordered by mistake but eventually lab work showed elevated troponin of 15.92, potassium of 6.8, BNP 1222. Chest x- ray showed emphysema with COPD with possible superimposed acute bronchitis. EKG showed normal sinus rhythm with marked T wave depressions. Upon reviewing the labs and returning to the patients bed side I felt it appropriate to contact the patient's vascular surgeon Dr. Remy to update him on the patient's condition. He noted that the elevated potassium could be related to the patient' s ischemic leg and muscle cell lysis. Also this could explain the elevated troponin, but did not expect that level to be solely related to the limb ischemia. He noted that the patient did well during the surgery and was fairly stable, had a normal stress test prior to the operation and had little blood loss. He cautioned that if we had to anticoagulate the patient due to the possible ID that we would not be able to bolus heparin in him. He recommended that we could slowly titrate a heparin drip with him and monitor his hemoglobin very closely. He recommended notifying cardiology and discuss the case with the automation machine builder. Dr. Osorio was on-call, I explained to him our lab values and the EKG findings. He indicated that due to the patient's recent surgery, the elevated potassium and inability to safely anticoagulate the patient that he would not be a candidate for heart cath at this time. With the patient's like rhabdomyolysis his kidneys would not tolerate contrast either. He also agreed that the troponin, potassium elevations were likely due to the patient's limb ischemia, and with the elevated potassium the EKG was likely not reliable anyway. He stated that he would also recommend not trending the patient 's troponins, as it would be expected to increase. He did recommend echocardiogram in the AM, and continued medical management. During the time I was on the phone with Cardiology, Dr. Bangura who came to the ICU to assist with the patient called the patient's daughter due to worsening status, and possible need for intubation. Patient was starting to be less responsive, and appeared pale. Patient has a DNRCCA/DNI code status, and apparently this was documented in the patient's living will. We do not have access to this at this time. He does not have an official DPOA, and during my conversation with the daughter earlier she did not know exactly what his code status was. She gave us permission as being the next of kin to intubate him to get him stabilized. He was successfully intubated by RT, and started on the ventilator. After intubation patient had a bradycardic event, requiring urgent management. Patient also had large amount of coffee ground material after airway suction. One amp of bicarb given as well as 10u insulin, 1 amp of dextrose, 2g calcium gluconate and 1 liter bolus also given for high potassium. Patient's blood pressure started to decrease as well, and patient did not have central line access. Dr. Bangura and myself were not comfortable placing an IJ central line in the patient, and femoral access was not possible due to his vascular procedures. I call Dr. Remy again and informed him of the hypotension and our need for central line access. He graciously agreed to come in and place a line for us. Currently Dr. Remy is at bedside, placing central line as well as dialysis catheter, as patient may require urgent dialysis in the event that his potassium does not improve. Dr. Bangura put in consult orders for general surgery for possible EGD in the morning, an ICU consult for continued critical care management, and a cardiology consult for further cardiac recommendations. Update #1: At 5am this morning I called Dr. Boston of general surgery who is oncall for EGD , and notified her of our concerns of GI bleed. She agreed to come in and see the patient. Update #2: Due to patient's GI bleed, did start patient on IV antibiotics and ordered blood cultures. Critical care time greater than 74 minutes related to management of patient's respiratory status, blood pressure, coordinating care with vascular surgery, cardiology, general surgery, reviewing/ordering labs and medical records and discussing patient's condition with his family.
[2018-02-09] MEDS ORDERED: Dexmedetomidine HCl 400 MCG/100 ML MLS IVC SCH (03:45)
[2018-02-09] MEDS ORDERED: Pantoprazole 40 MG in 0.9 % Sodium Chloride Mini Bag 100 ML IVC SCH (03:45)
[2018-02-09 03:55] LABS: Creatine Kinase > 20000 Units/L (30-223)
[2018-02-09] MEDS: Ipratropium/Albuterol Neb 3 ML IH SCH (03:57)
[2018-02-09 04:00] LABS: Eosinophils % 0.1 %
[2018-02-09] MEDS ORDERED: Artificial Tears SOLN 15 ML BOTTLE BOTH EYES SCH (04:00)
[2018-02-09 04:01] LABS: Hematocrit 19.3 % (37.5-50.1); Hemoglobin 6.3 g/dL (12.9-16.9); Immature Granulocytes % 4.7 % (0-4); Lymphocytes # 0.9 K/mcL (0.6-4.6); Lymphocytes % 10.2 %; Mean Corpuscular HGB Conc 32.6 g/dL (31.6-35.5); Mean Corpuscular Hemoglobin 33.7 pg (28.0-33.3); Mean Corpuscular Volume 103.2 fL (83.0-100.0); Mean Platelet Volume 11.3 fL (9.4-12.4); Monocytes # 0.2 K/mcL (0.0-1.3); Neutrophils # 7.4 K/mcL (1.6-8.9); Red Blood Count 1.87 M/mcL (4.19-5.50)
[2018-02-09 04:02] LABS: VBG Ionized Calcium 1.03 mmol/L (1.15-1.35)
[2018-02-09 04:02] LABS: Platelet Count 74 K/mcL (140-400)
[2018-02-09 04:05] LABS: INR 1.4; Prothrombin Time 15.2 Seconds (9.4-12.1)
[2018-02-09 04:18] LABS: Activated Partial Thrombo Time 35.1 Seconds (26.0-36.0)
[2018-02-09 04:20] LABS: Calcium 6.6 mg/dL (8.6-10.3); Magnesium 2.2 mg/dL (1.6-2.6); Potassium 6.7 mEq/L (3.5-5.1)
[2018-02-09] MEDS ORDERED: *HR* Heparin 5,000 UNIT/ML VIAL ONE (04:21)
[2018-02-09] MEDS ORDERED: 0.9 % Sodium Chloride 250 ML ONE (04:45)
--- NOTE | 2018-02-09 05:11 | Procedure Note ---
Date of procedure: 02/09/18 Pre-op diagnosis: Hypotension Post-op diagnosis: same Procedure: Ultrasound-guided insertion right internal jugular triple-lumen catheter Surgeon: Scott Remy Was there an emergency room physician assistant present: No Estimated blood loss (cc): 10 Pathology: none sent Condition: critical Disposition: ICU
--- NOTE | 2018-02-09 05:27 | Operative Note ---
Date of procedure: 02/09/18 Pre-op diagnosis: Hypotension Post-op diagnosis: same Procedure: Ultrasound-guided access right internal jugular triple-lumen catheter Implants: Triple-lumen catheter Complications: None Anesthesia: local Surgeon: Scott Remy Was there an audiology assistant present: No Estimated blood loss (cc): 10 Specimen: none Condition: critical Disposition: ICU Procedure in Detail: The patient is status post aortobifemoral bypass and bilateral femoral arteries endarterectomy. The patient developed acute limb ischemia yesterday and required urgent intervention on his left lower extremity for revascularization. Postoperatively the patient developed GI bleeding, elevated troponin and rhabdomyolysis. He is hypotensive with a hemoglobin of 6.5. The patient does not have adequate IV access to resuscitate him. He was intubated earlier by the medical team. Consent was obtained from his daughter to pursue with the placement of central lines. The patient was placed in a comfortable position. The right side of his neck was prepped and draped in usual fashion. The left side of the neck was prepped and draped in usual fashion. Patient is status post left carotid artery endarterectomy was a scar in the left neck. I was able to visualize right internal jugular vein which appears to be patent. His veins are flat due to his hypotension. I was also able to visualize the left internal jugular vein but it is very small. With ultrasound guidance the right internal jugular vein was accessed. The wire was introduced blindly into the the heart. I was able to use ultrasound to place another access distally. The wire was introduced without any issues. I dilated the upper wire subcutaneous tissue. I introduced a triple lumen catheter without any issues. I aspirated and flushed all 3 lm. The catheter was secured in place with silk. Attention was then directed to the anterior line. I was able to dilate it and introduce the dialysis catheter over a wire. I was unable to draw blood back from the dialysis catheter. With manipulation I was able to aspirate intermittently from the arterial and venous lumen. I was concerned that I was in a side branch. I decided to remove the catheter and apply pressure to the neck for hemostasis. If dialysis catheter is needed it has to be done in IR by the radiology team under fluoroscopic guidance chest x-ray was ordered..
--- NOTE | 2018-02-09 05:32 | Operative Note ---
Date of procedure: 02/08/18 Pre-op diagnosis: Acute left limb ischemia. Post-op diagnosis: same Procedure: Left femoral embolectomy. On table angiogram left lower extremity. Left femoral to below-knee popliteal bypass with reversed, translocated, ipsilateral greater saphenous vein, left profunda femoral endarterectomy, 4 compartment fasciotomy Anesthesia: MIGUE Surgeon: Scott Remy Was there an seo assistant present: Yes Estimated blood loss (cc): 300 Tourniquet Time (Minutes): 22 Specimen: Thrombosed left femoral artery Condition: critical Disposition: ICU (The patient is status post aortobifemoral bypass) Procedure in Detail: The patient is status post aortobifemoral bypass for bilateral iliac arterial occlusive disease. The patient is known to have preoperative bilateral lower extremities PVDs. His ABIs on the left was 0.5. On rounds the patient was found to have profound ischemia to the left lower extremity. The patient was complaining of pain in his left foot. The left lower extremity was mottled from the groin down to the toes. He was unable to move his toes. The foot on the left was insensate. The patient had palpable femoral pulses bilaterally. He had Doppler signals on the right but no signals on the left. His CT angiogram from preoperatively was reviewed. The patient has severe multilevel arterial occlusive disease involving the left superficial femoral artery. His main runoff to the left lower extremity is via the posterior tibial artery. I elected to take the patient urgently to the operating room to revascularize his left lower extremity. I suspect femoral bifurcation occlusion. Consent was obtained from the daughter. The patient was brought to the operating room. He was placed on the operating room table in the supine comfortable position. A Ordonez catheter was placed to monitor his urine output. Compression boot was applied to the right lower extremity. The patient received antibiotics preoperatively prophylactically. No central line or arterial line were placed by the anesthesia team. His creatinine preoperatively was 1.1. His hemoglobin was 12. The left lower extremity was prepped and draped in usual sterile fashion. The procedure was started by opening the left groin incision. Vessel loop was placed around the left limb of the aortobifemoral bypass. Vessel loop was placed around the common femoral artery. The superficial femoral and profunda vessels were dissected. I placed vessel loops around them. The patient had a pulse in the graft. I was able to see thrombus across the common femoral lumen as well as the profunda femoral artery. The proximal profunda femoral artery was hard to palpation. The patient was given 5000 units of heparin. I clamped the graft with a Gwendolyn clamp. The common, superficial and deep femoral vessels were clamped. I used an 11 blade to open the graft longitudinally for 2 cm. The graft itself was patent. Thrombus was identified at the bifurcation. Thrombus was removed from the common femoral artery and from the bifurcation. I have attempted to introduce a 5-Gabonese Gwendolyn balloon down the superficial femoral artery but I was unable to advance the catheter beyond 2 cm. I have attempted to advanced as smaller Gwendolyn balloon across and I was unable to do so. I was able to run the Gwendolyn down the profunda femoral artery. I did not have any backbleeding from the profunda femoral artery. I closed the arteriotomy with 6-0 Prolene. I placed a 4-Gabonese catheter into the left limb of aortobifemoral bypass and performed an angiogram. The superficial femoral was occluded as suspected. There was a high-grade stenosis at the proximal profunda femoral artery.. The distal left profunda is patent. I have attempted to visualize the popliteal artery. I was unable to do so. At this stage I have elected to pursue with a left femoral to below-knee popliteal bypass. I made an incision along the medial aspect of the calf. The greater saphenous vein was identified and was dissected circumferentially. The popliteal fossa was entered. The popliteal artery felt to be soft to touch. The left greater saphenous vein was harvested between the calf and the groin by one continuous longitudinal incision. The side branches were ligated with 4-0 silk. The vein was around 2-1/2 mm in diameter. It was flushed with heparinized saline solution. Hemostasis of the greater saphenous vein harvesting size was obtained. The greater saphenous vein harvesting site was closed with 3 layers of 2-0 Vicryl ,3-0 Vicryl and carlos. The greater saphenous vein was then tunneled below the sartorius muscle in a reversed fashion. The patient was given 5000 units more of heparin around 1 hour from his initial dose. The graft, and femoral vessels were clamped. The arteriotomy on the graft was reopened. The vein was spatulated and sutured with 6-0 Prolene to the graft. Flow was restored through the profunda femoral artery. Vascular clamp was applied to the proximal vein. I made a separate longitudinal arteriotomy on the profunda femoral artery. I identified an occlusive plaque 1 cm distal to the bifurcation. It was the end of the endarterectomy site. It was mobile and blocking the outflow of the profunda femoral artery. I was able to dissect it circumferentially and divided using Plata scissors. The profunda femoral artery was closed with running 7-0 Prolene. Attention was then directed to the left lower extremity. 3 more thousands units of heparin was given to the patient. A tourniquet was applied to the left distal thigh. The leg was elevated and the tourniquet was inflated to 250 mmHg. The popliteal artery was opened longitudinally. The vein was spatulated and sutured with 6-0 Prolene to the popliteal artery. Flow was restored through the graft after deflating the tourniquet. The tourniquet time was 22 minutes. Hemostatsis was meticulously performed. The medial compartment muscle was viable but swollen. Superficial and deep compartment fasciotomy was performed. The muscle was used to cover the anastomotic site. The wound was left open. I have placed a few interrupted 2- 0 nylon sutures for closure at the later time. I made another incision on the anterior aspect of the leg. Incision was carried down through the skin and subcutaneous tissue. The fascia was opened longitudinally on the anterior and lateral compartments the muscle was viable but swollen. I have placed 2 interrupted nylon suture and left them loose to be tied at the later time once the swelling of the leg decrease. The groin wound was then closed with multiple layers of 2-0 Vicryl, 3-0 Vicryl and interrupted nylon for the skin. The patient tolerated the procedure well. His estimated blood loss was around 300 ml. Dressings were applied to the left groin, thigh and calf. No blood product was given to the patient in the operating room. All instrument, pad counts was normal. We elected to send the patient to the intensive care unit. The patient had a strong left posterior tibial signal. The foot was warm and well- perfused. The mottling of the left lower extremity was gone.
[2018-02-09] MEDS ORDERED: Norepinephrine 4 MG in D5% in Water 250 ML IVC SCH (05:45)
[2018-02-09 05:59] LABS: ABG Base Excess -11 mEq/L (-2 to 3); ABG HCO3 16 mEq/L (21-27); ABG Oxygen Saturation 100 % (95-98); ABG PCO2 37 mmHg (35-45); ABG PH 7.24 pH Units (7.32-7.45); ABG PO2 229 mmHg (85-104); ABG TCO2 17 mEq/L (20-26); Blood Gas Modality PRVC; Blood Gas PEEP 5 cm H2O; Blood Gas Respiration Rate 12; Blood Gas VT 500 cc
[2018-02-09] MEDS ORDERED: MetroNIDAZOLE 500 MG/100 ML 500 MG/100 ML BAG IVPB SCH (06:00)
--- NOTE | 2018-02-09 06:05 | Vascular/[facility] Progress Note ---
Date of Encounter: 02/09/18 - Assessment and plan (1) Acute occlusion of artery of lower extremity Current Visit: Yes Status: Resolved Status post left femoral to below-knee popliteal bypass. The foot is warm and well perfused. Status post fasciotomy. (2) Anemia due to blood loss, acute Current Visit: Yes Status: Acute His operative blood loss was around 300 mm. His hemoglobin preoperatively was 12. The patient has a large dark blood from his oral gastric tube. I suspect that his GI bleeding is etiology for his hypotension. Gen. surgery was consulted for endoscopy. (3) Acute respiratory failure Current Visit: Yes Status: Acute Acute respiratory failure multifactorial in etiology. Patient is known to have chronic obstructive pulmonary disease, the patient is anemic with hypotension. (4) Acute respiratory failure requiring reintubation Current Visit: Yes Status: Acute (5) Upper gastrointestinal bleeding Current Visit: Yes Status: Acute Discussion with patient/family: Long discussion with the daughter. In summary the patient is status post aortobifemoral bypass graft complicated by left femoral bifurcation occlusion , profound ischemia to the left lower extremity and neurologic compromise. The patient underwent an embolectomy of the left femoral artery and left femoral to below-knee popliteal bypass. Fasciotomy was performed to avoid compartment syndrome. The patient developed postoperative anemia secondary to an upper GI bleeding. The patient has rhabdomyolysis with elevated potassium. He has been given blood. I placed a central line in the right internal jugular vein to aid in his resuscitation. His left leg is well perfused. The patient cannot be anticoagulated at this stage. His troponin is elevated. Cardiology was consulted. His chest x-ray was reviewed. The central line is in adequate location. I suspect some mediastinal blood from removing his large temporary dialysis catheter from the right IJ. - Subjective Procedure(s) Performed: Left lower extremity revascularization. Please refer to the operative report Interval history: Mr. Branch is status post urgent revascularization of the left lower extremity for acute limb ischemia. The patient is status post aortobifemoral bypass graft. On rounds he was found to have mottling of the left lower extremity from the groin to the foot. He was taken urgently to the operating room. He underwent left femoral to below-knee popliteal bypass was fasciotomy of the left calf. His estimated blood loss was around 300 mm. The patient was extubated by the anesthesia team. The patient was admitted to the intensive care unit. The patient was found to be tachycardic with a heart rate of 120. His potassium was elevated to 6 and his hemoglobin was down to 6.5. The patient was intubated by the hospitalist team. His oral gastric tube drained about 500 mL of dark blood. His family are at his bedside. I just place a triple-lumen catheter in his right IJ as he needs pressors and blood. The patient is sedated and mechanically ventilated. Vital Signs, Last 4 Hours Temp Pulse Resp BP Pulse Ox 02/09/18 05:51 94.0 F L 103 20 93/67 100 02/09/18 05:49 94 F L 102 20 60/23 60 02/09/18 05:00 100 16 92/32 02/09/18 04:00 95.8 F L 81 16 66/44 02/09/18 03:58 18 68/47 94 02/09/18 03:25 20 79/45 100 02/09/18 03:00 60 106/89 - Physical Examination General: Present: Other (Patient intubated and mechanically ventilated) HEENT: Present: Pupils equal Cardiac: Present: Reg Rate and Rhythm, Normal S1 and S2, No Murmur Lungs: Present: Normal Breath Sounds Neuro: Present: Other (Intubated and mechanically ventilated. He is unable to move his extremities to command.) Vascular: Present: Normal capillary refill (The patient has palpable femoral pulses bilaterally. He has a strong posterior tibial signals bilaterally. The skin of the thigh and calf of the left lower extremity is pink. The left leg is well perfused. The right leg is normal.) Abdomen: Present: Soft Skin: Present: No rashes noted on visualized skin - VTE Documentation of Mechanical Device: Intermittent pneumatic compression device Deep Vein Thrombosis/Pulmonary Embolism Present on Admission: No Results 02/09/18 03:10 02/09/18 03:10 Lab Results, Last 24 hours 02/08/18 02/08/18 02/09/18 23:53 23:53 01:29 WBC Hgb Hct Plt Count INR APTT Sodium Cancelled 136 Potassium Cancelled 6.8 H* D Chloride Cancelled 107 Carbon Dioxide Cancelled 20 L BUN Cancelled 33 H Creatinine Cancelled 1.64 H Glucose Cancelled 97 Calcium Cancelled 7.5 L Magnesium Troponin I 15.92 H* B-Natriuretic Peptide 1222 H 02/09/18 02/09/18 02/09/18 01:29 03:10 03:10 WBC 13.5 H 8.9 Hgb 9.7 L 6.3 L D Hct 28.7 L 19.3 L Plt Count 96 L 74 L INR 1.4 APTT 35.1 D Sodium Potassium Chloride Carbon Dioxide BUN Creatinine Glucose Calcium Magnesium Troponin I B-Natriuretic Peptide 02/09/18 03:10 WBC Hgb Hct Plt Count INR APTT Sodium 135 L Potassium 6.7 H* Chloride 107 Carbon Dioxide 22 L BUN 33 H Creatinine 1.56 H Glucose 270 H Calcium 6.6 L Magnesium 2.2 Troponin I B-Natriuretic Peptide Consult Discharge Plan - Plan Referrals: Christiano Prater MD [Primary Care Provider] - (Per Dr. Mendes Office patient has to make their own appointment) Juan King MD [Partnered Physician] - 03/04/18 3:00 pm
--- NOTE | 2018-02-09 06:42 | Pulmonology Consult Note ---
<Mesfin Alonzo W - Last Filed: 02/09/18 10:09> Date of Encounter: 02/09/18 Medications and Allergies Aspirin 81 mg PO DAILY 05/22/16 [History] LORazepam [Ativan] 0.5 mg PO TID 05/22/16 [History] Lisinopril [Zestril] 20 mg PO BID 05/22/16 [History] Simvastatin [Zocor] 20 mg PO HS 05/22/16 [History] Amlodipine Besylate 2.5 mg PO DAILY 08/29/17 [History] Ipratropium/Albuterol Neb [Duoneb] 3 ml IH [id number] vial 09/01/17 [Rx] 3 Allergy/AdvReac Type Severity Reaction Status Date / Time No Known Allergies Allergy Verified 02/06/18 07:54 All Systems: The remainder of the systems were reviewed and are negative Physical Examination Vital Signs: Vital Signs, Last 4 Hours Temp Pulse Resp BP Pulse Ox 02/09/18 07:30 19 79/49 02/09/18 06:45 94.2 F L 93 20 104/61 100 Ventilator Settings Ventilator Settings: Ventilator Settings, Last 8 Hours Ventilator Tidal Volume 500 Setting Ventilator Tidal Volume 500 Setting Ventilator Tidal Volume 500 Setting Ventilator Tidal Volume 500 Setting Ventilator Tidal Volume 500 Setting Ventilator Tidal Volume 500 Setting Ventilator Tidal Volume 500 Setting Ventilator Respiratory Rate 12 Setting Ventilator Respiratory Rate 12 Setting Ventilator Respiratory Rate 12 Setting Ventilator Respiratory Rate 12 Setting Ventilator Respiratory Rate 12 Setting Ventilator Respiratory Rate 12 Setting Ventilator Respiratory Rate 12 Setting Actual Respiratory Rate 19 Actual Respiratory Rate 20 Actual Respiratory Rate 18 Actual Respiratory Rate 20 Actual Respiratory Rate 17 Actual Respiratory Rate 18 Positive End Expiratory 5 Pressure Positive End Expiratory 5 Pressure Positive End Expiratory 5 Pressure Positive End Expiratory 5 Pressure Positive End Expiratory 5 Pressure Positive End Expiratory 5 Pressure Positive End Expiratory 5 Pressure Peak Inspiratory Airway 28 Pressure Peak Inspiratory Airway 24 Pressure Peak Inspiratory Airway 23 Pressure Results - Laboratory Findings CBC and BMP: 02/09/18 03:10 02/09/18 05:45 ABG ABG pH 7.24 pH Units (7.32-7.45) L 02/09/18 05:54 ABG pCO2 37 mmHg (35-45) 02/09/18 05:54 ABG pO2 229 mmHg (85-104) H 02/09/18 05:54 ABG O2 Saturation 100 % (95-98) H 02/09/18 05:54 PT/INR, D-dimer PT 15.2 Seconds (9.4-12.1) H 02/09/18 03:10 Abnormal lab findings: Abnormal lab results RBC 1.87 M/mcL (4.19-5.50) L 02/09/18 03:10 Hgb 6.3 g/dL (12.9-16.9) L D 02/09/18 03:10 Hct 19.3 % (37.5-50.1) L 02/09/18 03:10 MCV 103.2 fL (83.0-100.0) H 02/09/18 03:10 MCH 33.7 pg (28.0-33.3) H 02/09/18 03:10 RDW 15.0 % (11.5-14.5) H 02/09/18 03:10 Plt Count 74 K/mcL (140-400) L 02/09/18 03:10 Immature Gran % 4.7 % (0-4) H 02/09/18 03:10 Reactive Lymphocytes Present (Not Present) A 02/07/18 03:45 Platelet Estimate Decreased (Normal) L 02/07/18 03:45 Immature Plt Fraction 8.8 % (1.1-6.1) H 02/09/18 01:29 Poikilocytosis 1+ (Not Present) A 02/07/18 03:45 Acanthocytes (Spur) 1+ (Not Present) A 02/07/18 03:45 PT 15.2 Seconds (9.4-12.1) H 02/09/18 03:10 ABG pH 7.24 pH Units (7.32-7.45) L 02/09/18 05:54 ABG pO2 229 mmHg (85-104) H 02/09/18 05:54 ABG HCO3 16 mEq/L (21-27) L 02/09/18 05:54 ABG Total CO2 17 mEq/L (20-26) L 02/09/18 05:54 ABG O2 Saturation 100 % (95-98) H 02/09/18 05:54 ABG Base Excess -11 mEq/L (-2 to 3) L 02/09/18 05:54 Glucose 173 mg/dL (60-95) H 02/06/18 14:48 Potassium 5.8 mEq/L (3.5-5.1) H 02/09/18 05:45 Chloride 112 mEq/L (98-107) H 02/09/18 05:45 Carbon Dioxide 12 mEq/L (23-29) L 02/09/18 05:45 BUN 38 mg/dL (8-23) H 02/09/18 05:45 Creatinine 1.64 mg/dL (0.70-1.30) H 02/09/18 05:45 Est GFR ( Amer) 50 (> 60) L 02/09/18 05:45 Est GFR (Non-Af Amer) 41 (> 60) L 02/09/18 05:45 Glucose 115 mg/dL (70-105) H 02/09/18 05:45 POC Glucose 113 mg/dL (70-99) H 02/08/18 23:01 Calcium 6.3 mg/dL (8.6-10.3) L 02/09/18 05:45 Venous Ioniz Calcium 1.03 mmol/L (1.15-1.35) L 02/09/18 04:00 AST 55 Units/L (13-39) H 02/07/18 12:05 Creatine Kinase > 56634 Units/L (30-223) H 02/09/18 01:29 Troponin I 15.92 ng/mL (< 0.04) H* 02/08/18 23:53 B-Natriuretic Peptide 1222 pg/mL (Less than 100) H 02/08/18 23:53 Serum Total Protein 4.9 g/dL (6.4-8.9) L 02/07/18 12:05 Albumin 2.8 g/dL (3.5-5.7) L 02/07/18 12:05 Globulin 2.1 g/dL (2.4-3.5) L 02/07/18 12:05 Arterial Blood Ionized Calcium 1.11 mmol/L (1.15-1.35) L 02/06/18 14:48 Urine Protein 30 mg/dL (Neg-Trace) H 02/08/18 13:00 Urine Blood Large (Negative) H 02/08/18 13:00 Urine Microscopic RBC 3-5 per hpf (0-3) H 02/08/18 13:00 Ur Squamous Epith Cells Moderate per lpf (None-Few) H 02/08/18 13:00 - Clinical Findings Intake & Output: Intake & Output 02/08/18 02/09/18 02/09/18 23:59 07:59 15:59 Intake Total 700 / 700 Output Total 900 / 900 200 / 200 Balance -890 / -890 500 / 500 Weight 55.7 kg Consult Discharge Plan - Plan Referrals: Christiano Prater MD [Primary Care Provider] - (Per Dr. Mendes Office patient has to make their own appointment) Juan King MD [Partnered Physician] - 03/04/18 3:00 pm - Attending Attestation I examined this patient and my medical decision-making was reviewed with the Resident Physician. I agree with the documented findings, disposition and treatment plan as described except to the extent set forth below. We independently had [id number] contact with the patient I spent 60min of Critical Care time with this patient. It involved decision making of high complexity to assess, manipulate, and support vital organ system failure and/or to prevent further life threatening deterioration of the patient' s condition. The time involved in the performance of separately reportable procedures was not counted toward critical care time. Patient seen and examined at bedside Labs, radiology, chart personally reviewed. This is an unfortunate 77-year-old gentleman who was admitted initially for aortofemoral bypass because of severe peripheral vascular disease. Unfortunately overnight patient had a serious decompensation. Patient relates suffered acute respiratory failure requiring intubation was noted to have NSTEMI with progression to cardiogenic shock requiring vasopressor support complicated by gastric hemorrhage severe metabolic acidosis to acute kidney injury complicated by rhabdomyolysis. Initial efforts were aimed at stabilizing patient including red blood cell transfusion medical management of hyperkalemia including bicarbonate and insulin. Attempt but all to what failure of placement of temporary HD catheter but successful placement of CVC. Patient underwent EGD without evidence of focal area of hemorrhage but diffuse gastritis possibly related to acute stress response. The situation was very complicated from a standpoint of patient's CODE STATUS. It was clearly documented that on 02/07 the patient's CODE STATUS was changed from full to D&E are/DNI after extensive conversation was had with the primary medicine service and the patient this was documented and the patient was given the option of having CPR or endotracheal intubation if needed both of which he declined understanding that if those events were to happen that he would be anticipated to pass away. Apparently there may have been confusion with the overnight team and they proceeded with intubation possibly related to confusion about the family's understanding/knowledge of his decision that was made on 02/07. Apparently when the team spoke with the family they wanted to pursue an aggressive plan of care. Overnight the the patient was considered to be medically incompetent to make decisions because of his critical illness. I brought the family to the ICU from the waiting room which included his next of kin is her adult daughter her and his sister. I explained to him that the documentation and in fact the order that was placed in the medical record was DNA are/DNI and that Mr. Branch had been very clear with a healthcare provider who changed the status based upon the documentation that he did not want to pursue aggressive measures in the event of respiratory failure or cardiac arrest. I stated that we were attempting to treat him as aggressively as possible recurrent but that his overall prognosis was extremely poor and I did not anticipate his survival in the event even of continued aggressive critical care management. Clearly the patient based upon the documentation did not want to be in this situation and I explained to the patient that we were obligated to respect his wishes not to pursue aggressive care and that based upon the documentation the right approach at this time was to remove endotracheal tube and focus on comfort measures. The family consulted together and expressed their understanding and agreement with plan of care clearly they wanted what was best for their loved one and wanted to keep him alive as long as possible but understanding the context of the prior decision-making this was the most ethical/compassionate decision. Further aggressive critical care was abandoned at this point and full comfort measures were instituted the patient was compassionately extubated and shortly thereafter. We did to offer the family spiritual (including pastoral services) and emotional support during this time <Martin Fox - Last Filed: 02/09/18 11:36> Date of Encounter: 02/09/18 Time of Encounter: 06:41 Assessment and Plan (1) Multisystem organ failure Status: Acute Overall prognosis extremely poor even with aggressive critical care management. Based upon previous documentation, Critical care attending explained to the patient's daughter, son, and sister that we are obligated to respect Mr. Branch' s wishes to not pursue aggressive care and the right approach at this time is to remove the endotracheal tube and focus on comfort measures. The family consulted together and expressed their understanding and agreement with plan of care. Further aggressive critical care was abandoned and full comfort measures were instituted. (2) Cardiogenic shock Status: Acute Vascular surgery placed a central line in the right internal jugular vein to aid in resuscitation efforts. Based upon previous documentation, Mr. Branch did not want CPR performed. (3) Non-ST elevated myocardial infarction (non-STEMI) Status: Acute Labs revealed troponin of 15.92 and EKG showed normal sinus rhythm with marked T wave depressions. Hospitalist discussed the case with the gaming associate on-call, Dr. Osorio who stated patient would not be a candidate for heart cath at this time given the elevated potassium, rhabdomyolysis REYES with inability to tolerate contrast, and inability to safely anticoagulate the patient due to the patient's recent surgery. (4) Acute respiratory failure requiring reintubation Status: Acute The patient had increased work of breathing and respiratory rate of 30. ABG showed pH of 7.33, pCO2 of 37 pO2 of 91 The patient was considered to be medically incompetent to make decisions because of his critical illness. Hospitalist did not have access to the patient' s living will indicating his code status. During the hospitalist's conversation with the patient's daughter, being the next of kin, she requested to proceed with intubation to get her father stabilized. He was successfully intubated by RT, and started on the ventilator. (5) Hyperkalemia Status: Acute Potassium level 6.8 IV fluids, calcium gluconate, insulin, glucose, and bicarbonate given (6) Normal anion gap metabolic acidosis Status: Acute HCO3 level 12, ABG showed pH of 7.33, pCO2 of 37 pO2 of 91 Bicarbonate given (7) Rhabdomyolysis Status: Acute CK level greater than 20,000 IV fluids given Qualifiers: Rhabdomyolysis type: traumatic Encounter type: initial encounter Qualified Code(s): T79.6XXA - Traumatic ischemia of muscle, initial encounter (8) Acute kidney injury Status: Acute REYES in the setting of acute rhabdomyolysis IV fluids given (9) Anemia due to blood loss, acute Status: Acute The patient developed postoperative anemia secondary to an upper GI bleeding. Patient's hemoglobin dropped down to 6.3 from 14.3 preoperatively and he was transfused 4 L of PRBCs. Patient also had a large amount of coffee ground material after airway suction. PPI started. General surgery consulted for EGD. (10) Upper gastrointestinal bleeding Status: Acute General surgery was consulted and performed EGD at bedside revealing gastritis, duodenitis, nonbleeding gastric ulcer, and esophageal varices. (11) Gastritis Status: Acute General surgery was consulted and performed EGD at bedside revealing gastritis, duodenitis, nonbleeding gastric ulcer, and esophageal varices. Qualifiers: Gastritis type: other gastritis Chronicity: acute Gastritis bleeding: with bleeding Qualified Code(s): K29.01 - Acute gastritis with bleeding (12) Peripheral vascular disease Status: Acute On 02/06/18 for aortobifemoral bypass graft placement and bilateral femoral endarterectomy by vascular surgery. The patient was taken from the operating room to the intensive care unit following the operation. On 02/08/18, vascular surgery evaluated the patient for left femoral bifurcation occlusion, profound ischemia to the left lower extremity, and neurologic compromise. The patient returned to the OR and underwent an embolectomy of the left femoral artery and left femoral to below-knee popliteal bypass. Fasciotomy was performed to avoid compartment syndrome. (13) Hypertension Status: Chronic Qualifiers: Hypertension type: essential hypertension Qualified Code(s): I10 - Essential (primary) hypertension (14) Chronic kidney disease, stage III (moderate) Status: Chronic History of Present Illness Consult date: 02/09/18 Requesting physician: Jovanny Bangura Reason for consult: other (ICU management) Chief complaint: Left femoral occlusion s/p aortofemoral bypass History of present illness: Mr. Branch is a 77 yo male with a past medical history of hypertension, peripheral vascular disease, and CKD stage III who presented on 02/06/18 for aortobifemoral bypass graft placement and bilateral femoral endarterectomy by vascular surgery. The patient was taken from the operating room to the intensive care unit following the operation. Patient was later moved out of ICU when his post-op condition stabilized. On 02/07/18, Mr. Branch requested that his CODE STATUS to be changed to DNR CCA-DNI and he requested that we not discuss his Code Status decision with his children. On 02/08/18, vascular surgery evaluated the patient for left femoral bifurcation occlusion, profound ischemia to the left lower extremity, and neurologic compromise. The patient returned to the OR and underwent an embolectomy of the left femoral artery and left femoral to below-knee popliteal bypass. Fasciotomy was performed to avoid compartment syndrome. The patient developed postoperative anemia secondary to an upper GI bleeding. Patient also had a large amount of coffee ground material after airway suction. Vascular surgery placed a central line in the right internal jugular vein to aid in his resuscitation. The patient had increased work of breathing and respiratory rate of 30. ABG showed pH of 7.33, pCO2 of 37 pO2 of 91 and CBC, BMP, chest x-ray, EKG and a troponin were also ordered. Labs revealed elevated potassium 6.8 and troponin of 15.92 and EKG showed normal sinus rhythm with marked T wave depressions. Hospitalist discussed the case with the gaming associate on-call, Dr. Osorio who stated patient would not be a candidate for heart cath at this time given the elevated potassium, rhabdomyolysis REYES with inability to tolerate contrast, and inability to safely anticoagulate the patient due to the patient's recent surgery. Patient's hemoglobin dropped down to 6.3 from 14.3 preoperatively and he was transfused 4 L of PRBCs. Patient's DNR-CCA-DNI CODE STATUS was entered at 20:10 on 02/08/2018. The patient was considered to be medically incompetent to make decisions because of his critical illness. Hospitalist did not have access to the patient's living will indicating his code status. During the hospitalist' s conversation with the patient's daughter, being the next of kin, she requested to proceed with intubation to get her father stabilized. He was successfully intubated by RT, and started on the ventilator. Critical care was consulted. Past Med Surg Social Fam HX - Past Medical History Medical history: cancer, COPD, CVA, hyperlipidemia, hypertension, other Additional medical history: carotid stenosis. PVD Psychiatric history: no psych history - Past Surgical History Surgical History: herniorrhaphy, other Additional surgical history: left carotid endarterectomy. left upper lobectomy ([place]) - Social History Smoking Status: Current every day smoker Packs per day: 1-2 Smokeless Tobacco Status: No Alcohol use: rarely Drug use: none ROS unobtainable: due to endotracheal tube All Systems: The remainder of the systems were reviewed and are negative Physical Examination Vital Signs: Vital Signs, Last 4 Hours Temp Pulse Resp BP Pulse Ox 02/09/18 06:00 94.2 F L 93 20 104/61 95 09/09/18 05:51 94.0 F L 103 20 93/67 100 02/09/18 05:49 94 F L 102 20 60/23 60 02/09/18 05:00 100 16 92/32 02/09/18 04:00 95.8 F L 81 16 66/44 02/09/18 03:58 18 68/47 94 02/09/18 03:25 20 79/45 100 02/09/18 03:00 60 106/89 General appearance: comatose (Intubated, sedated) Eyes: nonicteric ([place]) ENT: oropharynx dry (intubated) Effort: very labored (Intubated, breathing over ventilator) Cardiovascular: other (Tachycardic) Gastrointestinal: hypoactive bowel sounds, soft, non-distended Integumentary: other (Cold, pale) Extremities: no edema, pulses normal Musculoskeletal: no deformities Gait: normal posture unable to assess due to mental status (Intubated, sedated) Ventilator Settings Ventilator Settings: Ventilator Settings, Last 8 Hours Ventilator Tidal Volume 500 Setting Ventilator Tidal Volume 500 Setting Ventilator Tidal Volume 500 Setting Ventilator Tidal Volume 500 Setting Ventilator Tidal Volume 500 Setting Ventilator Tidal Volume 500 Setting Ventilator Respiratory Rate 12 Setting Ventilator Respiratory Rate 12 Setting Ventilator Respiratory Rate 12 Setting Ventilator Respiratory Rate 12 Setting Ventilator Respiratory Rate 12 Setting Ventilator Respiratory Rate 12 Setting Actual Respiratory Rate 20 Actual Respiratory Rate 18 Actual Respiratory Rate 20 Actual Respiratory Rate 17 Actual Respiratory Rate 18 Positive End Expiratory 5 Pressure Positive End Expiratory 5 Pressure Positive End Expiratory 5 Pressure Positive End Expiratory 5 Pressure Positive End Expiratory 5 Pressure Positive End Expiratory 5 Pressure Peak Inspiratory Airway 24 Pressure Peak Inspiratory Airway 23 Pressure Results - Laboratory Findings CBC and BMP: 02/09/18 03:10 02/09/18 05:45 ABG ABG pH 7.24 pH Units (7.32-7.45) L 02/09/18 05:54 ABG pCO2 37 mmHg (35-45) 02/09/18 05:54 ABG pO2 229 mmHg (85-104) H 02/09/18 05:54 ABG O2 Saturation 100 % (95-98) H 02/09/18 05:54 PT/INR, D-dimer PT 15.2 Seconds (9.4-12.1) H 02/09/18 03:10 Abnormal lab findings: Abnormal lab results RBC 1.87 M/mcL (4.19-5.50) L 02/09/18 03:10 Hgb 6.3 g/dL (12.9-16.9) L D 02/09/18 03:10 Hct 19.3 % (37.5-50.1) L 02/09/18 03:10 MCV 103.2 fL (83.0-100.0) H 02/09/18 03:10 MCH 33.7 pg (28.0-33.3) H 02/09/18 03:10 RDW 15.0 % (11.5-14.5) H 02/09/18 03:10 Plt Count 74 K/mcL (140-400) L 02/09/18 03:10 Immature Gran % 4.7 % (0-4) H 02/09/18 03:10 Reactive Lymphocytes Present (Not Present) A 02/07/18 03:45 Platelet Estimate Decreased (Normal) L 02/07/18 03:45 Immature Plt Fraction 8.8 % (1.1-6.1) H 02/09/18 01:29 Poikilocytosis 1+ (Not Present) A 02/07/18 03:45 Acanthocytes (Spur) 1+ (Not Present) A 02/07/18 03:45 PT 15.2 Seconds (9.4-12.1) H 02/09/18 03:10 ABG pH 7.24 pH Units (7.32-7.45) L 02/09/18 05:54 ABG pO2 229 mmHg (85-104) H 02/09/18 05:54 ABG HCO3 16 mEq/L (21-27) L 02/09/18 05:54 ABG Total CO2 17 mEq/L (20-26) L 02/09/18 05:54 ABG O2 Saturation 100 % (95-98) H 02/09/18 05:54 ABG Base Excess -11 mEq/L (-2 to 3) L 02/09/18 05:54 Glucose 173 mg/dL (60-95) H 02/06/18 14:48 Sodium 135 mEq/L (136-145) L 02/09/18 03:10 Potassium 6.7 mEq/L (3.5-5.1) H* 02/09/18 03:10 Carbon Dioxide 22 mEq/L (23-29) L 02/09/18 03:10 BUN 33 mg/dL (8-23) H 02/09/18 03:10 Creatinine 1.56 mg/dL (0.70-1.30) H 02/09/18 03:10 Est GFR ( Amer) 53 (> 60) L 02/09/18 03:10 Est GFR (Non-Af Amer) 43 (> 60) L 02/09/18 03:10 Glucose 270 mg/dL (70-105) H 02/09/18 03:10 POC Glucose 113 mg/dL (70-99) H 02/08/18 23:01 Calcium 6.6 mg/dL (8.6-10.3) L 02/09/18 03:10 Venous Ioniz Calcium 1.03 mmol/L (1.15-1.35) L 02/09/18 04:00 AST 55 Units/L (13-39) H 02/07/18 12:05 Creatine Kinase > 31460 Units/L (30-223) H 02/09/18 01:29 Troponin I 15.92 ng/mL (< 0.04) H* 02/08/18 23:53 B-Natriuretic Peptide 1222 pg/mL (Less than 100) H 02/08/18 23:53 Serum Total Protein 4.9 g/dL (6.4-8.9) L 02/07/18 12:05 Albumin 2.8 g/dL (3.5-5.7) L 02/07/18 12:05 Globulin 2.1 g/dL (2.4-3.5) L 02/07/18 12:05 Arterial Blood Ionized Calcium 1.11 mmol/L (1.15-1.35) L 02/06/18 14:48 Urine Protein 30 mg/dL (Neg-Trace) H 02/08/18 13:00 Urine Blood Large (Negative) H 02/08/18 13:00 Urine Microscopic RBC 3-5 per hpf (0-3) H 02/08/18 13:00 Ur Squamous Epith Cells Moderate per lpf (None-Few) H 02/08/18 13:00 - Diagnostic Findings Chest x-ray: report reviewed, image reviewed - Clinical Findings Intake & Output: Intake & Output 02/08/18 02/08/18 02/09/18 15:59 23:59 07:59 Intake Total 0 / 0 350 / 350 Output Total 1200 / 1200 900 / 900 200 / 200 Balance -1200 / -1200 -890 / -890 150 / 150 Weight 55.7 kg
[2018-02-09] MEDS ORDERED: *HR* Midazolam HCl 2 MG/2 ML VIAL ONE (07:02)
[2018-02-09] MEDS ORDERED: *HR* FentaNYL (PF) 100 MCG/2 ML VIAL IVP ONE (07:04)
[2018-02-09] MEDS ORDERED: *HR* Midazolam HCl 5 MG/5 ML VIAL IVP ONE ×2 (07:05→08:29)
[2018-02-09] MEDS ORDERED: FentaNYL (PF) 1,000 MCG in 0.9 % Sodium Chloride 80 ML IVC SCH (07:15)
[2018-02-09 07:55] VITALS: BP 79/49
[2018-02-09] MEDS ORDERED: *HR* LORazepam 2 MG/ML VIAL IVP PRN (07:58)
[2018-02-09] MEDS ORDERED: Scopolamine Patch 1.5 MG PATCH.TD72 TD ONE (08:00)
--- NOTE | 2018-02-09 08:14 | Event Note ---
Date of Encounter: 02/09/18 Time of Encounter: 08:11 Called this am at home regarding patient having UGIB, was told had 500 cc bright red blood return from NGT. Vitals stable. Hb 6.3. Presented to bedside and patient is intubated and somewhat sedate on vent. Family - sister and daughter present at bedside. Discussed egd for ugib with family, risks and benefits discussed and they wish to proceed. NGT output is coffee ground old blood. Patient hypotensive, just received 2 units prbc. No previous history of UGIB. No history of ulcers or gerd per family. Patient drank heavily for many years in the past stopping about 10 years ago. Will plan EGD.
[2018-02-09] MEDS ORDERED: Aminoglycoside Consult 1 EACH MC ONE (08:29)
--- NOTE | 2018-02-09 08:33 | Death Note ---
<Martin Fox - Last Filed: 02/09/18 10:54> Discharge Sum: Summary - Date and Time Date of admission: 02/06/18 17:05 Date of : 02/09/18 Time of : 08:30 - Summary Details: Mr. Branch is a 77 yo male with a past medical history of hypertension, peripheral vascular disease, and CKD stage III who presented on 02/06/18 for aortobifemoral bypass graft placement and bilateral femoral endarterectomy by vascular surgery. The patient was taken from the operating room to the intensive care unit following the operation. Patient was later moved out of ICU when his post-op condition stabilized. On 02/07/18, Mr. Branch requested that his CODE STATUS to be changed to DNR CCA-DNI and he requested that we not discuss his Code Status decision with his children. On 02/08/18, vascular surgery evaluated the patient for left femoral bifurcation occlusion, profound ischemia to the left lower extremity, and neurologic compromise. The patient returned to the OR and underwent an embolectomy of the left femoral artery and left femoral to below-knee popliteal bypass. Fasciotomy was performed to avoid compartment syndrome. The patient developed postoperative anemia secondary to an upper GI bleeding. Patient also had a large amount of coffee ground material after airway suction. Vascular surgery placed a central line in the right internal jugular vein to aid in his resuscitation. The patient had increased work of breathing and respiratory rate of 30. ABG showed pH of 7.33, pCO2 of 37 pO2 of 91 and CBC, BMP, chest x-ray, EKG and a troponin were also ordered. Labs revealed elevated potassium 6.8 and troponin of 15.92 and EKG showed normal sinus rhythm with marked T wave depressions. Hospitalist discussed the case with the band head saw operator on-call, Dr. Osorio who stated patient would not be a candidate for heart cath at this time given the elevated potassium, rhabdomyolysis REYES with inability to tolerate contrast, and inability to safely anticoagulate the patient due to the patient's recent surgery. Patient's hemoglobin dropped down to 6.3 from 14.3 preoperatively and he was transfused 4 L of PRBCs. Patient's DNR-CCA-DNI CODE STATUS was entered at 20:10 on 02/08/2018. The patient was considered to be medically incompetent to make decisions because of his critical illness. Hospitalist did not have access to the patient's living will indicating his code status. During the hospitalist' s conversation with the patient's daughter, being the next of kin, she requested to proceed with intubation to get her father stabilized. He was successfully intubated by RT, and started on the ventilator. Critical care was consulted. General surgery was consulted and performed EGD at bedside revealing gastritis, duodenitis, nonbleeding gastric ulcer, and esophageal varices. His overall prognosis was extremely poor even with continued aggressive critical care management. Based upon previous documentation, Mr. Branch did not want to be in this situation and critical care attending explained to the patient's daughter, son, and sister that we were obligated to respect his wishes to not pursue aggressive care, and that based upon the documentation the right approach at this time was to remove the endotracheal tube and focus on comfort measures. The family consulted together and expressed their understanding and agreement with plan of care. Further aggressive critical care was abandoned and full comfort measures were instituted. The patient was extubated at 08:15 and shortly thereafter at 08:30. - Additional Data Confirmation of as documented by pronouncing clinician: no pulse, no respirations, no heart sounds, pupils fixed and dilated Family: at bedside Additional persons at bedside: ita Attending/PCP notified?: Yes Attending physician: Juan King MD Was code activated?: No Autopsy requested?: No claims examiner notified?: No Organ bank notified?: No Advance directives: Yes Hospice patient?: No Discharge Sum: Diag - PCOD Probable Cause of : Cardiac arrest Discharge Sum: Prov - Provider Primary care physician: Christiano Prater MD Admitting clinician: Juan King Attending physician on admission: Juan King Consults: 02/07/18 07:44 Consult to Blind Teacher [CONS] Routine Reason for SW Consult: POTENTIAL NEED FOR REHAB 02/09/18 03:41 Consult to Pulmonology [CONS] Routine Consulting Provider: [facility] [place] Reason for Consult: ICU management Call Completed: No General surgery Pronouncing clinician: Martin oFx <Mesfin Alonzo - Last Filed: 02/09/18 11:46> Discharge Sum: Summary - Date and Time Date of admission: 02/06/18 17:05 - Additional Data Attending physician: Juan King MD Discharge Sum: Prov - Provider Primary care physician: Christiano Prater MD Consults: 02/07/18 07:44 Consult to Blind Teacher [CONS] Routine Reason for SW Consult: POTENTIAL NEED FOR REHAB 02/09/18 03:41 Consult to Pulmonology [CONS] Routine Consulting Provider: [facility] [place] Reason for Consult: ICU management Call Completed: No - Attending Attestation I examined this patient and my medical decision-making was reviewed with the Resident Physician. I agree with the documented findings, disposition and treatment plan as described except to the extent set forth below. We independently had varr-af-rbwa contact with the patient
[2018-02-09] MEDS ORDERED: amLODIPine 5 MG TABLET PO SCH (09:00)
[2018-02-09] MEDS ORDERED: Lisinopril 20 MG TABLET PO SCH (09:00)
[2018-02-09] MEDS ORDERED: *HR* LORazepam 0.5 MG TABLET PO SCH (09:00)
[2018-02-09] MEDS ORDERED: Pantoprazole 40 MG VIAL IVP SCH (09:00)
[2018-02-09] MEDS ORDERED: Chlorhexidine Rinse 15 ML MOUTHWASH MM SCH (09:00)
[2018-02-09 09:47] LABS: Calcium 6.3 mg/dL (8.6-10.3); Potassium 5.8 mEq/L (3.5-5.1)
[2018-02-09] MEDS ORDERED: Budesonide/Formoterol 160/4.5 1 PUFF INH IH SCH (10:00)
--- NOTE | 2018-02-11 08:49 | Electrocardiograph Report ---
[employer] Test Date: 2018-02-09 Pat Name: Robert Branch Department: 112 Room: 04 Gender: M Learning Disabilities Resource Teacher: : 1940 Requested By: Jovanny Bangura Order Number: [id number] Reading MD: Adelso Abad Measurements Intervals [place] Rate: 88 P: 80 NE: 123 QRS: 90 QRSD: 80 T: 231 QT: 399 QTc: 445 Interpretive Statements SINUS RHYTHM ST DEVIATION AND MARKED T-WAVE ABNORMALITY, CONSIDER ANTEROLATERAL ISCHEMIA Electronically Signed On 02-11-2018 8:47:16 EDT by Adelso Abad
== END 2018-02-09 08:30 | disposition expired | DRG 270 ==
LOC: SAMDAY 06:50 → ICNU 15:59 → 2NNU 02-07 19:40 → ICNU 02-08 21:30
PROVIDERS: ADMIT Surgery; ATTEND Surgery